=== PATIENT | male | born 1970 | race Two or more races ===

== ENCOUNTER 2016-11-26 12:09 | Inpatient (IN) | payer OTHER ==
[2016-11-26 15:50] VITALS: BMI 26.2
--- NOTE | 2016-11-26 16:56 | HP ---
CIWA Score - CIWA Score Nausea/Vomitin-Mild Nausea/No Vomiting Muscle Tremors: 3 Anxiety: 4-Mod. Anxious/Guarded Agitation: 4-Moderately Restless Paroxysmal Sweats: 1-Minimal Palms Moist Orientation: 0-Oriented Tacttile Disturbances: 0-None Auditory Disturbances: 0-None Visual Disturbances: 0-None Headache: 1-Very Mild CIWA-Ar Total Score: 14 Admission ROS BHS - HPI Chief Complaint: withdrawal sx Allergies/Adverse Reactions: Allergies Allergy/AdvReac Type Severity Reaction Status Date / Time Fish Containing Products Allergy Severe Rash Verified 11/26/16 17:00 bupropion HCl Allergy Intermediate seizures Verified 11/26/16 16:46 [From Wellbutrin] History of Present Illness: 46 years old male with long history of alcohol cocaine nicotine dependence, has diabetes ii hypertension hepatitis c and bipolar ii is admitted to detox Exam Limitations: No Limitations - Ebola screening Have you traveled outside of the country in the last 21 days: No Have you had contact with anyone from an Ebola affected area: No Have you been sick,other than usual withdrawal symptoms: No Do you have a fever: No - Review of Systems Constitutional: Loss of Appetite, Changes in sleep, Unintentional Wgt. Loss, Unexplained wgt Loss EENT: reports: No Symptoms Reported Respiratory: reports: No Symptoms reported Cardiac: reports: No Symptoms Reported GI: reports: Nausea, Poor Appetite : reports: No Symptoms Reported Musculoskeletal: reports: Back Pain, Joint Pain, Muscle Pain, Neck Pain Integumentary: reports: Rash (both feet) Neuro: reports: Seizure (8 seizure last episode 2014 alcohol related), Tremors Endocrine: reports: Increased Urine Hematology: reports: No Symptoms Reported Psychiatric: reports: Judgement Intact, Orientated x3, Depressed Other Systems: Reviewed and Negative Patient History - Patient Medical History Hx Anemia: No Hx Asthma: No Hx Chronic Obstructive Pulmonary Disease (COPD): No Hx Cancer: No Hx Cardiac Disorders: No Hx Congestive Heart Failure: No Hx Hypertension: Yes Hx Hypercholesterolemia: No Hx Pacemaker: No HX Cerebrovascular Accident: No Hx Seizures: Yes (12/2014) Hx Dementia: No Hx Diabetes: Yes Hx Gastrointestinal Disorders: No Hx Liver Disease: Yes Hx Genitourinary Disorders: No Hx Sexually Transmitted Disorders: No Hx Renal Disease (ESRD): No Hx Thyroid Disease: No Hx Human Immunodeficiency Virus (HIV): No (NEGATIVE IN 01/2012) Hx Hepatitis C: Yes (TREATED FOR 6 MONTHS, BUT DID NOT WORK) Hx Depression: No Hx Suicide Attempt: No Hx Bipolar Disorder: Yes Hx Schizophrenia: No - Patient Surgical History Past Surgical History: No Hx Neurologic Surgery: No Hx Cataract Extraction: No Hx Cardiac Surgery: No Hx Lung Surgery: No Hx Breast Surgery: No Hx Breast Biopsy: No Hx Abdominal Surgery: No Hx Appendectomy: No Hx Cholecystectomy: No Hx Genitourinary Surgery: No Hx Orthopedic Surgery: No - PPD History Previous Implant?: Yes Documented Results: Negative w/proof Implanted On Prior [facility] Admission?: Yes Date: 11/19/14 Results: 0 MM PPD to be Administered?: Yes - Smoking Cessation Smoking history: Current every day smoker Have you smoked in the past 12 months: Yes Aproximately how many cigarettes per day: 12 Cigars Per Day: 0 Hx Chewing Tobacco Use: No Initiated information on smoking cessation: Yes 'Breaking Loose' booklet given: 11/26/16 - Substance & Tx. History Hx Alcohol Use: Yes Hx Substance Use: Yes Substance Use Type: Alcohol, Cocaine, Opiates, Tranquilizers Hx Substance Use Treatment: Yes (03/24-04/19/15 [facility]) Family Disease History - Family Disease History Family Disease History: [place]: Father (), Mother (), Other: Father , Mother Admission Physical Exam S - Vital Signs Vital Signs: Vital Signs - 24 hr 11/26/16 15:36 Temperature 96.4 F L Pulse Rate 68 Respiratory 20 Rate Blood Pressure 130/76 - Physical General Appearance: Yes: Appropriately Dressed, Mild Distress, Thin, Tremorous, Irritable, Sweating, Anxious HEENTM: Yes: Hearing grossly Normal, Normal ENT Inspection, Normocephalic, Normal Voice Respiratory: Yes: Chest Non-Tender, Lungs Clear, Normal Breath Sounds, No Respiratory Distress, No Accessory Muscle Use Neck: Yes: Supple, Trachea in good position Breast: Yes: Breasts Symetrical Cardiology: Yes: Regular Rhythm, Regular Rate, S1, S2 Abdominal: Yes: Normal Bowel Sounds, Non Tender, Soft Genitourinary: Yes: Within Normal Limits Back: Yes: Normal Inspection Musculoskeletal: Yes: full range of Motion, Gait Steady, Back pain, Muscle Pain Extremities: Yes: Normal Inspection, Normal Range of Motion, Non-Tender, Tremors Neurological: Yes: Fully Oriented, Alert, Motor Strength 5/5, Normal Response, Depressed Affect Integumentary: Yes: Warm, Rash (feet) Lymphatic: Yes: Within Normal Limits - Diagnostic (1) Alcohol dependence with uncomplicated withdrawal Current Visit: Yes Status: Acute (2) Nicotine dependence Current Visit: Yes Status: Acute Qualifiers: Nicotine product type: cigarettes Substance use status: in withdrawal Qualified Code(s): F17.213 - Nicotine dependence, cigarettes, with withdrawal; F17.213 - Nicotine dependence, cigarettes, with withdrawal (3) Essential hypertension Current Visit: Yes Status: Chronic (4) Hepatitis C Current Visit: Yes Status: Chronic Qualifiers: Viral hepatitis chronicity: chronic Hepatic coma status: without hepatic coma Qualified Code(s): B18.2 - Chronic viral hepatitis C; B18.2 - Chronic viral hepatitis C; B18.2 - Chronic viral hepatitis C; B18.2 - Chronic viral hepatitis C (5) Methadone maintenance therapy patient Current Visit: Yes Status: Chronic Comment: 60 mg verification pending (6) Acneiform rash Current Visit: Yes Status: Chronic Comment: feet (7) Weight loss Current Visit: Yes Status: Acute (8) Bipolar II disorder Current Visit: Yes Status: Suspected Cleared for Admission S - Detox or Rehab [facility] Level of Care: Medically Managed Detox Regimen/Protocol: Librium BHS Breath Alcohol Content Breath Alcohol Content: 0 Vital Signs - Vital Signs Vital Signs Refused: No Temperature: 96.4 F Temperature Source: Oral Pulse Rate: 68 Respiratory Rate: 20 Blood Pressure: 130/76 BP Location: Left Arm Blood Pressure Position: Sitting - Height Height: 5 ft 9 in - Weight Weight: 178 lb Weight Measurement Method: Standing Scale Body Mass Index (BMI): 26.2 - Bowel Function Bowel Movement: Yes Urine Drug Screen - Control Is Test Valid: Yes - Results Drug Screen Negative: No Urine Drug Screen Results: ROSIO-Cocaine, OPI-Opiates, BZO-Benzodiazepines, MTD- Methadone
[2016-11-26] MEDS ORDERED: MAGNESIUM CITRATE 300 ML BOTTLE PO PRN (17:05)
[2016-11-26] MEDS ORDERED: MAG HYDROX/AL HYDROX/SIMETH 30 ML UNIT-DOSE CUP PO PRN (17:05)
[2016-11-26] MEDS ORDERED: guaiFENesin/D-METHORPHAN HB 10 ML UNIT-DOSE CUPS PO PRN (17:05)
[2016-11-26] MEDS ORDERED: MENTHOL/PHENOL 1 EACH UD MM PRN (17:05)
[2016-11-26] MEDS ORDERED: P-EPHED 60MG/TRIPROLIDI 2.5MG TABLET PO PRN (17:05)
[2016-11-26] MEDS ORDERED: IBUPROFEN 400 MG TABLET (FP) PO PRN (17:05)
[2016-11-26] MEDS ORDERED: LOPERAMIDE HCL 2 MG CAPSULE PO PRN (17:05)
[2016-11-26] MEDS ORDERED: diphenhydrAMINE HCL 50 MG CAPSULE PO PRN (17:05)
[2016-11-26] MEDS ORDERED: NICOTINE 14 MG/24 HOURS TOPICAL PATCH TD PRN (17:05)
[2016-11-26] MEDS ORDERED: MAGNESIUM HYDROX 2400MG/30ML ORAL SUSPENSION 30 ML CUP PO PRN (17:05)
[2016-11-26] MEDS ORDERED: ACETAMINOPHEN 325 MG TABLET (FP) PO PRN (17:05)
[2016-11-26] MEDS: chlordiazePOXIDE HCL 25 MG CAPSULE PO PRN (18:30)
[2016-11-26] MEDS: TOLNAFTATE 1% CREAM 15 GM TUBE TP SCH (21:52)
[2016-11-26 22:14] LABS: URINE APPEARANCE SLCLOUDY; URINE BILIRUBIN NEGATIVE (NEGATIVE); URINE BLOOD NEGATIVE (NEGATIVE); URINE COLOR YELLOW; URINE GLUCOSE (UA) 3+ (NEGATIVE); URINE KETONE NEGATIVE (NEGATIVE); URINE NITRITE NEGATIVE (NEGATIVE); URINE PROTEIN NEGATIVE (NEGATIVE); URINE UROBILINOGEN NEGATIVE mg/dL (0.2-1.0)
[2016-11-26] MEDS: chlordiazePOXIDE HCL 25 MG CAPSULE PO SCH (22:27)
[2016-11-26] MEDS: THIAMINE HCL 100 MG TABLET (FP) PO SCH (22:27)
[2016-11-26] MEDS: GABAPENTIN 300 MG CAPSULE (FP) PO SCH (22:27)
[2016-11-27] MEDS: GABAPENTIN 300 MG CAPSULE (FP) PO SCH ×3 (06:02→22:00)
[2016-11-27] MEDS: chlordiazePOXIDE HCL 25 MG CAPSULE PO SCH ×4 (06:02→22:20)
[2016-11-27] MEDS: metFORMIN HCL 500 MG TABLET (FP) PO SCH ×2 (06:07→17:23)
[2016-11-27] MEDS ORDERED: INSULIN (NOVOLOG) ASPART 100 UNITS/ML 10ML VIAL ONE ×2 (06:45→16:40)
[2016-11-27] MEDS: INSULIN SLIDING SCALE (NOVOLOG) 1 VIAL SQ SCH ×2 (08:04→17:23)
[2016-11-27] MEDS ORDERED: ONDANSETRON *ODT* 4 MG TABLET SL PRN (09:18)
[2016-11-27] MEDS ORDERED: METHADONE HCL 10 MG TABLET PO SCH (09:30)
[2016-11-27 09:38] LABS: MCH 30.4 pg (25.7-33.7); MEAN PLT VOLUME 9.2 fl (7.5-11.1); PLATELET COUNT 125 K/MM3 (134-434); RDW 13.2 % (11.9-15.9)
[2016-11-27 09:41] LABS: ALBUMIN 3.1 g/dl (3.4-5.0); ANION GAP 8 (8-16); CALCIUM 8.6 mg/dL (8.5-10.1); CO2 29 mmol/L (21-32); GLUCOSE,RANDOM 294 mg/dL (74-106); SGOT/AST 79 U/L (15-37)
[2016-11-27 09:43] LABS: ALK PHOS 217 U/L (45-117); BILIRUBIN,TOTAL 0.5 mg/dL (0.2-1.0); CREATININE 0.7 mg/dL (0.7-1.3); SGPT/ALT 90 U/L (12-78); TOT PROT 6.5 g/dl (6.4-8.2)
[2016-11-27] MEDS ORDERED: PRENATAL VITAMINS W/ FOLIC ACID TABLET (FP) PO SCH (10:00)
[2016-11-27] MEDS ORDERED: ENALAPRIL MALEATE 10 MG TABLET (FP) PO SCH (10:00)
[2016-11-27] MEDS ORDERED: METHADONE HCL 10 MG TABLET ONE (10:36)
[2016-11-27] MEDS ORDERED: METHADONE HCL 40 MG DISPERSABLE TABLET ONE (10:36)
[2016-11-27] MEDS: TOLNAFTATE 1% CREAM 15 GM TUBE TP SCH ×2 (10:37→22:20)
[2016-11-27] MEDS: METHADONE 40 MG, METHADONE 20 MG PO SCH (10:37)
[2016-11-27 11:55] LABS: URINE LEUK ESTERASE Negative (NEGATIVE)
--- NOTE | 2016-11-27 12:02 | CONSULT ---
[facility] Psychiatric Consult - Data Date of interview: 11/27/16 Admission source: [facility] Identifying data: Readmission to [facility] for this 46 y/o [place] male seeking detox treatment on for alcohol,cocaine,opioid and benzodiazepine dependence.Patient is ,the father of one independent adult ,domiciled,unemployed and supported on welfare benefits. Substance Abuse History: Confirmed by patient in this interview. Smoking Cessation. Smoking history: Current every day smoker. Have you smoked in the past 12 months: Yes. Aproximately how many cigarettes per day: 12. Cigars Per Day: 0. Hx Chewing Tobacco Use: No. Initiated information on smoking cessation : Yes. 'Breaking Loose' booklet given: 11/26/16. - Substance & Tx. History. Hx Alcohol Use: Yes. Hx Substance Use: Yes. Substance Use Type: Alcohol, Cocaine, Opiates, Tranquilizers. Hx Substance Use Treatment: Yes (03/24-04/19/15 [facility]) Medical History: Insulin-dependent diabetes mellitus,hypertension,hepatitis C. Psychiatric History: Patient is hostile,irritable and marginally cooperative.Mr Uribe denies any prior contact with mental healthcare providers.This is in contrast with a previous encounter with this promotion writer in 2016. Imported note as follows : " no reported history of psychiatric hospitalizations.Patient does, however,report that his first contact with a psychiatrist was in childhood ( exact age not recalled) because of " being slow in school ".Patient mentions that " in 2007,a doctor said that I have ADHD and depression with anxiety."He was reportedly prescribed xanax,seroquel and sertraline.For the time being,the patient reports affiliation with [facility] (methadone maintenance/ 100 mg daily).Sees a psychiatrist every 90 days for medication management.He denies history of suicide attempts." End of note. Mr Uribe is currently on methadone maintenance (60 mg/day) at [facility]. Physical/Sexual Abuse/Trauma History: Patient denies. Additional Comment: Urine Drug Screen Results: ROSIO-Cocaine, OPI-Opiates, BZO- Benzodiazepines, MTD-Methadone.Noted. Mental Status Exam - Mental Status Exam Alert and Oriented to: Time, Place, Person Cognitive Function: Good Patient Appearance: Well Groomed Mood: Angry (expected to be called first by nurses to get methadone dose ; feels self-entitled), Hostile, Irritable Affect: Normal Range Patient Behavior: Passive, Uncooperative Speech Pattern: Clear Voice Loudness: Normal Thought Process: Goal Oriented Thought Disorder: Not Present Hallucinations: Denies Suicidal Ideation: Denies Homicidal Ideation: Denies Insight/Judgement: Poor Sleep: Well Appetite: Good Muscle strength/Tone: Normal Gait/Station: Normal Psychiatric Findings - Problem List ([place] 1, 2,3) (1) Alcohol dependence with uncomplicated withdrawal Current Visit: Yes Status: Acute (2) Opioid dependence on agonist therapy Current Visit: Yes Status: Acute (3) Cocaine dependence Current Visit: Yes Status: Acute (4) Nicotine dependence Current Visit: Yes Status: Acute Qualifiers: Nicotine product type: cigarettes Substance use status: in withdrawal Qualified Code(s): F17.213 - Nicotine dependence, cigarettes, with withdrawal; F17.213 - Nicotine dependence, cigarettes, with withdrawal (5) Substance induced mood disorder Current Visit: Yes Status: Acute (6) Personality disorder, unspecified Current Visit: Yes Status: Suspected (7) Essential hypertension Current Visit: Yes Status: Chronic (8) IDDM (insulin dependent diabetes mellitus) Current Visit: No Status: Acute - Initial Treatment Plan Initial Treatment Plan: Psychoeducation.Detoxification.Observation.
--- NOTE | 2016-11-27 12:03 | EKG ---
Test Reason : Blood Pressure : / mmHG Vent. Rate : 069 BPM Atrial Rate : 069 BPM P-R Int : 184 ms QRS Dur : 082 ms QT Int : 404 ms P-R-T Axes : 054 017 018 degrees QTc Int : 432 ms NORMAL SINUS RHYTHM POSSIBLE LEFT ATRIAL ENLARGEMENT LEFT VENTRICULAR HYPERTROPHY ABNORMAL ECG NO PREVIOUS ECGS AVAILABLE Confirmed by CHELITA HALE MD ([id number]) on 11/27/2016 12:03:03 PM Referred By: Confirmed By:CHELITA HALE MD
--- NOTE | 2016-11-27 12:24 | PN ---
S CIWA - CIWA Score Nausea/Vomitin Muscle Tremors: None Anxiety: 4-Mod. Anxious/Guarded Agitation: 3 Paroxysmal Sweats: 3 Orientation: 0-Oriented Tacttile Disturbances: 3-Moderate Itch/Numb/Burn Auditory Disturbances: 0-None Visual Disturbances: 2-Mild Sensitivity Headache: 0-None Present CIWA-Ar Total Score: 20 S Progress Note (SOAP) Subjective: Sweating, Vomiting, Interrupted sleep, Stomach Cramping, Body Aches. Objective: PT. A & O X 3, OBSERVED AMBULATING ON UNIT. NO ACUTE DISTRESS. PT. DENIES CHEST PAIN. 11/27/16 12:20 Vital Signs Temperature 97.9 F 11/27/16 09:48 Pulse Rate 68 11/27/16 09:48 Respiratory Rate 20 11/27/16 09:48 Blood Pressure 147/98 11/27/16 09:48 O2 Sat by Pulse Oximetry (%) Laboratory Tests 11/26/16 11/26/16 11/26/16 12:23 17:13 21:30 WBC RBC Hgb Hct MCV MCH MCHC RDW Plt Count MPV Sodium Potassium Chloride Carbon Dioxide Anion Gap BUN Creatinine Creat Clearance w eGFR POC Glucometer 210 179 Random Glucose Calcium Total Bilirubin AST ALT Alkaline Phosphatase Total Protein Albumin Urine Color Yellow Urine Appearance Slcloudy Urine pH 5.0 Ur Specific [place] 1.025 Urine Protein Negative Urine Glucose (UA) 3+ H Urine Ketones Negative Urine Blood Negative Urine Nitrite Negative Urine Bilirubin Negative Urine Urobilinogen Negative Ur Leukocyte Esterase Negative RPR Titer 11/27/16 11/27/16 11/27/16 06:05 07:00 07:00 WBC 5.0 RBC 4.39 Hgb 13.3 Hct 40.4 MCV 92.0 MCH 30.4 MCHC 33.0 RDW 13.2 Plt Count 125 L MPV 9.2 Sodium 138 Potassium 4.1 Chloride 101 Carbon Dioxide 29 Anion Gap 8 BUN 15 D Creatinine 0.7 Creat Clearance w eGFR > 60 POC Glucometer 187 Random Glucose 294 H D Calcium 8.6 Total Bilirubin 0.5 D AST 79 H D ALT 90 H D Alkaline Phosphatase 217 H D Total Protein 6.5 Albumin 3.1 L Urine Color Urine Appearance Urine pH Ur Specific [place] Urine Protein Urine Glucose (UA) Urine Ketones Urine Blood Urine Nitrite Urine Bilirubin Urine Urobilinogen Ur Leukocyte Esterase RPR Titer 11/27/16 07:00 WBC RBC Hgb Hct MCV MCH MCHC RDW Plt Count MPV Sodium Potassium Chloride Carbon Dioxide Anion Gap BUN Creatinine Creat Clearance w eGFR POC Glucometer Random Glucose Calcium Total Bilirubin AST ALT Alkaline Phosphatase Total Protein Albumin Urine Color Urine Appearance Urine pH Ur Specific [place] Urine Protein Urine Glucose (UA) Urine Ketones Urine Blood Urine Nitrite Urine Bilirubin Urine Urobilinogen Ur Leukocyte Esterase RPR Titer Nonreactive LABS NOTED. Assessment: 11/27/16 12:21 WITHDRAWAL SYMPTOMS. HTN. Plan: CONTINUE DETOX. HEPATIC FUNCTION PANEL ON 11/29/2016 FOR ELEVATED ADMISSION LIVER ENZYMES. CONTINUE TO MONITOR BP.
[2016-11-27] MEDS: chlordiazePOXIDE HCL 25 MG CAPSULE PO PRN ×2 (14:17→20:47)
[2016-11-27] MEDS: NICOTINE POLACRILEX 2 MG GUM BC PRN ×2 (17:37→19:51)
[2016-11-27] MEDS: THIAMINE HCL 100 MG TABLET (FP) PO SCH (22:20)
[2016-11-28] MEDS ORDERED: METHADONE HCL 40 MG DISPERSABLE TABLET ONE (03:10)
[2016-11-28] MEDS ORDERED: METHADONE HCL 10 MG TABLET ONE (03:10)
[2016-11-28] MEDS: chlordiazePOXIDE HCL 25 MG CAPSULE PO SCH (05:17)
[2016-11-28] MEDS: GABAPENTIN 300 MG CAPSULE (FP) PO SCH (05:17)
[2016-11-28] MEDS: METHADONE 40 MG, METHADONE 20 MG PO SCH (05:17)
[2016-11-28] MEDS: metFORMIN HCL 500 MG TABLET (FP) PO SCH (06:38)
[2016-11-28] MEDS: INSULIN SLIDING SCALE (NOVOLOG) 1 VIAL SQ SCH (06:39)
[2016-11-28] MEDS ORDERED: INSULIN (NOVOLOG) ASPART 100 UNITS/ML 10ML VIAL ONE (06:41)
[2016-11-28 10:15] VITALS: BP 133/89; PULSE 67; TEMP 98
--- NOTE | 2016-11-28 11:50 | DS ---
[facility] Detox Discharge Summary Admission Date: 11/26/16 Discharge Date: 11/28/16 - History Present History: Alcohol Dependence, Cocaine Dependence, MMTP Additional Comments: PT DECLINED TO COMPLETE DETOX. SIGNED OUT AMA. PT ENCOURAGED TO FOLLOW UP WITH PCP AT [facility] NEEDED. Pertinent Past History: HTN DM HEP C RASH DEPRESSION - Physical Exam Results Vital Signs: Vital Signs Temperature 98.0 F 11/28/16 10:14 Pulse Rate 67 11/28/16 10:14 Respiratory Rate 18 11/28/16 10:14 Blood Pressure 133/89 11/28/16 10:14 O2 Sat by Pulse Oximetry (%) Pertinent Admission Physical Exam Findings: WITHDRAWAL SX Laboratory Last Values WBC 5.0 K/mm3 (4.0-10.0) 11/27/16 07:00 RBC 4.39 M/mm3 (4.00-5.60) 11/27/16 07:00 Hgb 13.3 GM/dL (11.7-16.9) 11/27/16 07:00 Hct 40.4 % (35.4-49) 11/27/16 07:00 MCV 92.0 fl (80-96) 11/27/16 07:00 MCH 30.4 pg (25.7-33.7) 11/27/16 07:00 MCHC 33.0 g/dl (32.0-35.9) 11/27/16 07:00 RDW 13.2 % (11.9-15.9) 11/27/16 07:00 Plt Count 125 K/MM3 (134-434) L 11/27/16 07:00 MPV 9.2 fl (7.5-11.1) 11/27/16 07:00 Sodium 138 mmol/L (136-145) 11/27/16 07:00 Potassium 4.1 mmol/L (3.5-5.1) 11/27/16 07:00 Chloride 101 mmol/L (98-107) 11/27/16 07:00 Carbon Dioxide 29 mmol/L (21-32) 11/27/16 07:00 Anion Gap 8 (8-16) 11/27/16 07:00 BUN 15 mg/dL (7-18) D 11/27/16 07:00 Creatinine 0.7 mg/dL (0.7-1.3) 11/27/16 07:00 Creat Clearance w eGFR > 60 (>60) 11/27/16 07:00 POC Glucometer 203 UNITS (()) 11/28/16 05:15 Random Glucose 294 mg/dL (74-106) H D 11/27/16 07:00 Calcium 8.6 mg/dL (8.5-10.1) 11/27/16 07:00 Total Bilirubin 0.5 mg/dL (0.2-1.0) D 11/27/16 07:00 AST 79 U/L (15-37) H D 11/27/16 07:00 ALT 90 U/L (12-78) H D 11/27/16 07:00 Alkaline Phosphatase 217 U/L (45-117) H D 11/27/16 07:00 Total Protein 6.5 g/dl (6.4-8.2) 11/27/16 07:00 Albumin 3.1 g/dl (3.4-5.0) L 11/27/16 07:00 Urine Color Yellow 11/26/16 21:30 Urine Appearance Slcloudy 11/26/16 21:30 Urine pH 5.0 (5.0-8.0) 11/26/16 21:30 Ur Specific [place] 1.025 (1.005-1.025) 11/26/16 21:30 Urine Protein Negative (NEGATIVE) 11/26/16 21:30 Urine Glucose (UA) 3+ (NEGATIVE) H 11/26/16 21:30 Urine Ketones Negative (NEGATIVE) 11/26/16 21:30 Urine Blood Negative (NEGATIVE) 11/26/16 21:30 Urine Nitrite Negative (NEGATIVE) 11/26/16 21:30 Urine Bilirubin Negative (NEGATIVE) 11/26/16 21:30 Urine Urobilinogen Negative mg/dL (0.2-1.0) 11/26/16 21:30 Ur Leukocyte Esterase Negative (NEGATIVE) 11/26/16 21:30 RPR Titer Nonreactive (NONREACTIVE) 11/27/16 07:00 - Treatment Hospital Course: Discharged Condition Good - Medication Discharge Medications: Ambulatory Orders Metformin HCl [Glucophage] 1,000 mg PO BID 04/23/12 Enalapril Maleate [Vasotec -] 10 mg PO DAILY 11/17/14 Zolpidem Tartrate [Ambien] 10 mg PO HS #30 tablet 11/20/14 Quetiapine Fumarate [Seroquel] 50 mg PO HS #30 tablet 03/22/15 Sertraline HCl [Zoloft -] 100 mg PO DAILY #30 tablet 03/22/15 Gabapentin [Neurontin -] 300 mg PO TID #90 capsule 04/18/15 - Diagnosis (1) Alcohol dependence with uncomplicated withdrawal Status: Acute (2) Nicotine dependence Status: Acute Qualifiers: Nicotine product type: cigarettes Substance use status: in withdrawal Qualified Code(s): F17.213 - Nicotine dependence, cigarettes, with withdrawal; F17.213 - Nicotine dependence, cigarettes, with withdrawal (3) Weight loss Status: Acute (4) Essential hypertension Status: Chronic (5) Methadone maintenance therapy patient Status: Chronic (6) DM Diabetes mellitus type 2 Status: Chronic (7) Seizure disorder Status: Chronic (8) Cocaine dependence Status: Acute (9) Acneiform rash Status: Chronic (10) Hepatitis C Status: Chronic Qualifiers: Viral hepatitis chronicity: chronic Hepatic coma status: without hepatic coma Qualified Code(s): B18.2 - Chronic viral hepatitis C; B18.2 - Chronic viral hepatitis C; B18.2 - Chronic viral hepatitis C; B18.2 - Chronic viral hepatitis C - AMA Did Patient Leave Against Medical Advice: Yes (AMA)
[2016-11-28] MEDS ORDERED: chlordiazePOXIDE 5 MG CAPSULE PO SCH (23:00)
[2016-11-29] MEDS ORDERED: chlordiazePOXIDE HCL 10 MG CAPSULE PO SCH (23:00)
== END 2016-11-28 09:53 | disposition left against medical advice (07) | DRG 770 ==
LOC: YASAS 12:09 → Y3N 17:48
PROVIDERS: ADMIT Internal Medicine; ATTEND Internal Medicine
PROC: HZ2ZZZZ Detoxification Services for Substance Abuse Treatment (ICD-10-PCS; principal; 2016-11-26)
DX: F10.230 Alcohol dependence with withdrawal, uncomplicated (principal); F11.20 Opioid dependence, uncomplicated; F14.20 Cocaine dependence, uncomplicated; F17.213 Nicotine dependence, cigarettes, with withdrawal; F19.24 Other psychoactive substance dependence with psychoactive substance-induced mood disorder; F60.9 Personality disorder, unspecified; F31.81 Bipolar II disorder; I10 Essential (primary) hypertension; E11.9 Type 2 diabetes mellitus without complications; B18.2 Chronic viral hepatitis C; L27.0 Generalized skin eruption due to drugs and medicaments taken internally; Z91.013 Allergy to seafood; Z88.8 Allergy status to other drugs, medicaments and biological substances; Z86.69 Personal history of other diseases of the nervous system and sense organs; Z79.4 Long term (current) use of insulin; Z87.898 Personal history of other specified conditions
CPT/HCPCS: 36415; 80053; 81003; 85027; 86593; 93005; 93010

== ENCOUNTER 2017-03-09 10:19 | Inpatient (IN) | payer OTHER ==
[2017-03-09 12:43] VITALS: BMI 26.6
--- NOTE | 2017-03-09 16:53 | HP ---
CIWA Score - CIWA Score Nausea/Vomitin-No Nausea/No Vomiting Muscle Tremors: 4-Moderate,w/Arms Extend Anxiety: 4-Mod. Anxious/Guarded Agitation: 4-Moderately Restless Paroxysmal Sweats: 1-Minimal Palms Moist Orientation: 0-Oriented Tacttile Disturbances: 3-Moderate Itch/Numb/Burn Auditory Disturbances: 0-None Visual Disturbances: 0-None Headache: 0-None Present CIWA-Ar Total Score: 16 Admission ROS S - HPI Chief Complaint: WITHDRAWAL SX FROM ALCOHOL Allergies/Adverse Reactions: Allergies Allergy/AdvReac Type Severity Reaction Status Date / Time Fish Containing Products Allergy Severe Rash Verified 03/09/17 14:16 No Known Drug Allergies Allergy Verified 03/09/17 16:04 bupropion HCl AdvReac Intermediate seizures Verified 03/09/17 16:04 [From Wellbutrin] History of Present Illness: 47 Y/O H/MALE WITH A HX OF ALCOHOL,HEROIN AND COCAINE DEPENDENCE SEEKING DETOX TX. PT IS ON PROMESA-MMPT WITH METHADONE 7O MG PO DAILY. LAST DOSE ON 03/09/17. Exam Limitations: No Limitations - Ebola screening Have you traveled outside of the country in the last 21 days: No Have you had contact with anyone from an Ebola affected area: No Have you been sick,other than usual withdrawal symptoms: No - Review of Systems Constitutional: Chills, Loss of Appetite, Night Sweats, Changes in sleep, Unintentional Wgt. Loss EENT: reports: Blurred Vision (ESPECIALLY THE LEFT EYE), Tearing, Nose Congestion (SNEEZING) Respiratory: reports: SOB with Exertion (DENIES ASTHMA) Cardiac: reports: Lightheadedness GI: reports: Constipated (OIC), Diarrhea, Nausea, Poor Appetite, Vomiting : reports: Dysuria (SLOW COMING OUT SOMETIMES), Frequency Musculoskeletal: reports: Back Pain (HX LBP), Joint Pain (KNEES), Muscle Pain Integumentary: reports: Dryness, Rash (ITCHY AND DRY FEET) Neuro: reports: Headache (TAKES ASPIRIN), Seizure, Tremors, Unsteady Gait, Dizziness Endocrine: reports: Increased Hunger, Increased Thirst, Increased Urine, Change in Weight Hematology: reports: No Symptoms Reported Psychiatric: reports: Orientated x3, Anxious, Depressed Other Systems: Reviewed and Negative Patient History - Patient Medical History Hx Anemia: No Hx Asthma: No Hx Chronic Obstructive Pulmonary Disease (COPD): No Hx Cancer: No Hx Cardiac Disorders: No Hx Congestive Heart Failure: No Hx Hypertension: Yes (ON ENALAPRIL) Hx Hypercholesterolemia: No Hx Pacemaker: No HX Cerebrovascular Accident: No Hx Seizures: Yes (LAST IN 08/2016) Hx Dementia: No Hx Diabetes: Yes (BGM-147) Hx Gastrointestinal Disorders: No Hx Liver Disease: Yes Hx Genitourinary Disorders: No Hx Sexually Transmitted Disorders: No Hx Renal Disease (ESRD): No Hx Thyroid Disease: No Hx Human Immunodeficiency Virus (HIV): No (NEGATIVE IN 01/2012) Hx Hepatitis C: Yes (TREATED FOR 6 MONTHS, BUT DID NOT WORK) Hx Depression: Yes (ON MEDS) Hx Suicide Attempt: No Hx Bipolar Disorder: Yes Hx Schizophrenia: No - Patient Surgical History Past Surgical History: No Hx Neurologic Surgery: No Hx Cataract Extraction: No Hx Cardiac Surgery: No Hx Lung Surgery: No Hx Breast Surgery: No Hx Breast Biopsy: No Hx Abdominal Surgery: No Hx Appendectomy: No Hx Cholecystectomy: No Hx Genitourinary Surgery: No Hx Orthopedic Surgery: No Anesthesia Reaction: No - PPD History Previous Implant?: Yes Documented Results: Negative w/proof Implanted On Prior R Admission?: Yes Date: 11/28/16 Results: 0 MM PPD to be Administered?: No - Reproductive History Patient is a Female of Child Bearing Age (11 -55 yrs old): No (MALE) - Smoking Cessation Smoking history: Current every day smoker Have you smoked in the past 12 months: Yes Aproximately how many cigarettes per day: 10 Cigars Per Day: 0 Hx Chewing Tobacco Use: No Initiated information on smoking cessation: Yes 'Breaking Loose' booklet given: 03/09/17 - Substance & Tx. History Hx Alcohol Use: Yes (BEER/BARCADI/JORGE) Hx Substance Use: Yes (HEROIN) Substance Use Type: Alcohol, Cocaine, Heroin Hx Substance Use Treatment: Yes (CURRENTLY ON PROMESA-MMTP) - Substances Abused Alcohol Route: Oral Frequency: Daily Amount used: BEER(2- 6PKS-12 OZ BOTTLES)/RUM(1 PINT) Age of first use: 18 Date of Last Use: 03/09/17 Heroin Route: Inhalation Frequency: Daily Amount used: 5 bags Age of first use: 18 Date of Last Use: 03/09/17 Cocaine Route: Inhalation Frequency: Daily Amount used: 5 bags Age of first use: 18 Date of Last Use: 03/08/17 Family Disease History - Family Disease History Family Disease History: [place]: Father (), Mother (), Other: Father , Mother Admission Physical Exam [facility] - Vital Signs Vital Signs: Vital Signs - 24 hr 03/09/17 12:39 Temperature 96 F L Pulse Rate 74 Respiratory 20 Rate Blood Pressure 160/100 - Physical General Appearance: Yes: Appropriately Dressed, Moderate Distress, Irritable, Anxious HEENTM: Yes: EOMI, Normal ENT Inspection, Normocephalic, LISSETT, Pharynx Normal Respiratory: Yes: Chest Non-Tender, Lungs Clear, Normal Breath Sounds, No Respiratory Distress Neck: Yes: No masses,lesions,Nodules, Supple, Trachea in good position Breast: Yes: Breast Exam Deferred Cardiology: Yes: Regular Rhythm, Regular Rate, S1, S2 Abdominal: Yes: Normal Bowel Sounds, Non Tender, Flat, Soft Genitourinary: Yes: Other (N/C) Back: Yes: Within Normal Limits Musculoskeletal: Yes: full range of Motion, Gait Steady Extremities: Yes: Normal Range of Motion, Non-Tender Neurological: Yes: 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 NML intact, Fully Oriented, Alert, Motor Strength 5/5 Integumentary: Yes: Dry, Warm Lymphatic: Yes: Within Normal Limits - Diagnostic (1) Alcohol dependence with uncomplicated withdrawal Current Visit: Yes Status: Chronic (2) Nicotine dependence Current Visit: Yes Status: Chronic Qualifiers: Nicotine product type: cigarettes Substance use status: in withdrawal Qualified Code(s): F17.213 - Nicotine dependence, cigarettes, with withdrawal (3) Weight loss Current Visit: No Status: Acute (4) DM Diabetes mellitus type 2 Current Visit: Yes Status: Chronic (5) Essential hypertension Current Visit: Yes Status: Chronic (6) Hepatitis C Current Visit: Yes Status: Chronic Qualifiers: Viral hepatitis chronicity: chronic Hepatic coma status: without hepatic coma Qualified Code(s): B18.2 - Chronic viral hepatitis C (7) Methadone maintenance therapy patient Current Visit: Yes Status: Chronic Comment: 60 mg verification pending (8) Seizure disorder Current Visit: Yes Status: Chronic (9) Cocaine dependence, uncomplicated Current Visit: Yes Status: Acute Cleared for Admission [facility] - Detox or Rehab [facility] Level of Care: Medically Managed [facility]ox [facility] Breath Alcohol Content Breath Alcohol Content: 0 Urine Drug Screen - Results Drug Screen Negative: No Urine Drug Screen Results: ROSIO-Cocaine, OPI-Opiates, BZO-Benzodiazepines, MTD- Methadone
[2017-03-09] MEDS ORDERED: MAGNESIUM HYDROX 2400MG/30ML ORAL SUSPENSION 30 ML CUP PO PRN (17:12)
[2017-03-09] MEDS ORDERED: LOPERAMIDE HCL 2 MG CAPSULE PO PRN (17:12)
[2017-03-09] MEDS ORDERED: MAG HYDROX/AL HYDROX/SIMETH 30 ML UNIT-DOSE CUP PO PRN (17:12)
[2017-03-09] MEDS ORDERED: MAGNESIUM CITRATE 300 ML BOTTLE PO PRN (17:12)
[2017-03-09] MEDS ORDERED: P-EPHED 60MG/TRIPROLIDI 2.5MG TABLET PO PRN (17:12)
[2017-03-09] MEDS ORDERED: hydrOXYzine PAMOATE 50 MG CAPSULE (FP) PO PRN (17:12)
[2017-03-09] MEDS ORDERED: MENTHOL/PHENOL 1 EACH UD MM PRN (17:12)
[2017-03-09] MEDS ORDERED: guaiFENesin/D-METHORPHAN HB 10 ML UNIT-DOSE CUPS PO PRN (17:12)
[2017-03-09] MEDS ORDERED: NICOTINE POLACRILEX 2 MG GUM BC PRN (17:12)
[2017-03-09] MEDS ORDERED: chlordiazePOXIDE HCL 25 MG CAPSULE PO ONE (18:30)
[2017-03-09] MEDS: ENALAPRIL MALEATE 10 MG TABLET (FP) PO SCH (18:35)
[2017-03-09] MEDS: ASPIRIN 81 MG CHEWABLE TABLETS PO SCH (18:35)
[2017-03-09] MEDS: chlordiazePOXIDE HCL 25 MG CAPSULE PO SCH (22:12)
[2017-03-09] MEDS: THIAMINE HCL 100 MG TABLET (FP) PO SCH (22:12)
[2017-03-09] MEDS: GABAPENTIN 300 MG CAPSULE (FP) PO SCH (22:12)
[2017-03-09] MEDS: NICOTINE 14 MG/24 HOURS TOPICAL PATCH TD SCH (22:14)
[2017-03-09 23:06] LABS: URINE APPEARANCE CLEAR; URINE BILIRUBIN NEGATIVE (NEGATIVE); URINE BLOOD NEGATIVE (NEGATIVE); URINE COLOR YELLOW; URINE GLUCOSE (UA) 1+ (NEGATIVE); URINE KETONE NEGATIVE (NEGATIVE); URINE LEUK ESTERASE NEGATIVE (NEGATIVE); URINE NITRITE NEGATIVE (NEGATIVE); URINE PROTEIN NEGATIVE (NEGATIVE); URINE UROBILINOGEN NEGATIVE mg/dL (0.2-1.0)
[2017-03-10] MEDS ORDERED: METHADONE HCL 10 MG TABLET ONE (04:52)
[2017-03-10] MEDS ORDERED: METHADONE HCL 40 MG DISPERSABLE TABLET ONE (04:52)
[2017-03-10] MEDS: chlordiazePOXIDE HCL 25 MG CAPSULE PO SCH ×4 (05:16→22:01)
[2017-03-10] MEDS: METHADONE 40 MG, METHADONE 30 MG PO SCH (05:17)
[2017-03-10] MEDS ORDERED: METHADONE HCL 40 MG DISPERSABLE TABLET PO SCH (06:00)
[2017-03-10] MEDS: INSULIN SLIDING SCALE (NOVOLOG) 1 VIAL SQ SCH ×2 (07:27→17:16)
[2017-03-10] MEDS: metFORMIN HCL 500 MG TABLET (FP) PO SCH ×2 (07:28→17:17)
[2017-03-10] MEDS: chlordiazePOXIDE HCL 25 MG CAPSULE PO PRN ×2 (09:27→13:36)
[2017-03-10 10:05] LABS: HEMATOCRIT 43.9 % (35.4-49); HEMOGLOBIN 14.4 GM/dL (11.7-16.9); MCH 29.6 pg (25.7-33.7); MCHC 32.7 g/dl (32.0-35.9); MEAN CELL VOLUME 90.5 fl (80-96); MEAN PLT VOLUME 9.1 fl (7.5-11.1); PLATELET COUNT 174 K/MM3 (134-434); RBC 4.85 M/mm3 (4.00-5.60)
[2017-03-10] MEDS: GABAPENTIN 300 MG CAPSULE (FP) PO SCH ×2 (10:14→22:01)
[2017-03-10] MEDS: TOLNAFTATE 1% POWDER 45 GM POW TP SCH ×2 (10:14→22:03)
[2017-03-10] MEDS: PRENATAL VITAMINS W/ FOLIC ACID TABLET (FP) PO SCH (10:14)
[2017-03-10] MEDS: SERTRALINE HCL 50 MG TABLET (FP) PO SCH (10:14)
[2017-03-10] MEDS: ENALAPRIL MALEATE 10 MG TABLET (FP) PO SCH (10:14)
[2017-03-10] MEDS: ASPIRIN 81 MG CHEWABLE TABLETS PO SCH (10:14)
[2017-03-10] MEDS: NICOTINE 14 MG/24 HOURS TOPICAL PATCH TD SCH (10:15)
--- NOTE | 2017-03-10 11:02 | CONSULT ---
[facility] Psychiatric Consult - Data Date of interview: 03/10/17 Admission source: [facility] Identifying data: Pt. is a 47 year old male, father of one, and currently unemployed. This is one of multiple admissions for patient. Pt. admitted to for alcohol, cocaine, and opiate dependence. Substance Abuse History: Following information confirmed with Mr. Uribe: Smoking Cessation. Smoking history: Current every day smoker. Have you smoked in the past 12 months: Yes. Aproximately how many cigarettes per day: 10. Cigars Per Day: 0. Hx Chewing Tobacco Use: No. Initiated information on smoking cessation: Yes. 'Breaking Loose' booklet given: 03/09/17. - Substance & Tx. History. Hx Alcohol Use: Yes (BEER/BARCADI/JORGE). Hx Substance Use : Yes (HEROIN). Substance Use Type: Alcohol, Cocaine, Heroin. Hx Substance Use Treatment: Yes (CURRENTLY ON PROMESA-MMTP). - Substances Abused. Alcohol. Route: Oral. Frequency: Daily. Amount used: BEER(2- 6PKS-12 OZ BOTTLES)/RUM(1 PINT). Age of first use: 18. Date of Last Use: 03/09/17. Heroin. Route: Inhalation. Frequency: Daily. Amount used: 5 bags. Age of first use: 18. Date of Last Use: 03/09/17. Cocaine. Route: Inhalation. Frequency: Daily. Amount used: 5 bags. Age of first use: 18 Medical History: Hypertension, Seizures (last seizure on 08/2016), Diabetes, Liver disease, and Hep C Psychiatric History: Pt. denies h/o psychiatric hospitalizations. Reports OPC in 2006 and was diagnosed with Bipolar disorder, anxiety, and MDD. Reports currently seeing a psychiarist at [facility] in the [place] and reports being prescribed zoloft 100mg and seroquel 50mg qhs. Reports last dose taken 7 days ago. Pt. denies h/o suicide attempt. Physical/Sexual Abuse/Trauma History: Denies. Mental Status Exam - Mental Status Exam Alert and Oriented to: Time, Place, Person Cognitive Function: Good Patient Appearance: Well Groomed Mood: Euthymic Affect: Mood Congruent Patient Behavior: Guarded, Appropriate Speech Pattern: Appropriate Voice Loudness: Normal Thought Process: Goal Oriented Thought Disorder: Not Present Hallucinations: Denies Suicidal Ideation: Denies Homicidal Ideation: Denies Insight/Judgement: Poor Sleep: Poorly Appetite: Fair Muscle strength/Tone: Normal Gait/Station: Normal Psychiatric Findings - Problem List ([place] 1, 2,3) (1) Bipolar disorder Current Visit: Yes Status: Chronic Comment: Self reports. (2) Alcohol dependence with uncomplicated withdrawal Current Visit: Yes Status: Acute (3) Nicotine dependence Current Visit: Yes Status: Chronic Qualifiers: Nicotine product type: cigarettes Substance use status: in withdrawal Qualified Code(s): F17.213 - Nicotine dependence, cigarettes, with withdrawal (4) Alcohol dependence Current Visit: No Status: Acute (5) Cocaine dependence Current Visit: No Status: Acute (6) Major depression Current Visit: Yes Status: Chronic Comment: Self reports. (7) Opiate dependence Current Visit: Yes Status: Acute - Initial Treatment Plan Initial Treatment Plan: Psychoeducation provided. Detoxification in progress. Zoloft 50mg po daily (pt. requesting a reduce dosage) + seroquel 50mg qhs. Benefits and side effects discussed. Verbal consent given. Will continue to monitor patient.
[2017-03-10 11:30] LABS: CHLORIDE 99 mmol/L (98-107); POTASSIUM 4.1 mmol/L (3.5-5.1); SODIUM 139 mmol/L (136-145)
[2017-03-10 11:38] LABS: ALBUMIN 3.8 g/dl (3.4-5.0); ALK PHOS 158 U/L (45-117); ANION GAP 9 (8-16); BILIRUBIN,TOTAL 0.4 mg/dL (0.2-1.0); BLOOD UREA NITROGEN 20 mg/dL (7-18); CALCIUM 9.2 mg/dL (8.5-10.1); CO2 31 mmol/L (21-32); CREATININE 0.8 mg/dL (0.7-1.3); GLUCOSE,RANDOM 142 mg/dL (74-106); SGOT/AST 78 U/L (15-37); SGPT/ALT 100 U/L (12-78); TOT PROT 7.6 g/dl (6.4-8.2)
[2017-03-10] MEDS ORDERED: FLU VACCINE QUAD 60 MCG/0.5 ML (MDV 17-18) IM ONE (12:00)
[2017-03-10] MEDS: TOLNAFTATE 1% CREAM 15 GM TUBE TP SCH ×2 (12:28→22:02)
--- NOTE | 2017-03-10 13:41 | PN ---
S CIWA - CIWA Score Nausea/Vomitin-Mild Nausea/No Vomiting Muscle Tremors: 3 Anxiety: 3 Agitation: 2 Paroxysmal Sweats: 1-Minimal Palms Moist Orientation: 0-Oriented Tacttile Disturbances: 1-Very Mild Itch/Numbness Auditory Disturbances: 1-Very Mild Visual Disturbances: 2-Mild Sensitivity Headache: 1-Very Mild CIWA-Ar Total Score: 15 BHS Progress Note (SOAP) Objective: 03/10/17 13:41 Laboratory Tests 03/09/17 03/09/17 03/09/17 14:41 15:00 22:40 WBC RBC Hgb Hct MCV MCH MCHC RDW Plt Count MPV Sodium Potassium Chloride Carbon Dioxide Anion Gap BUN Creatinine Creat Clearance w eGFR POC Glucometer 147 Random Glucose Calcium Total Bilirubin AST ALT Alkaline Phosphatase Total Protein Albumin Urine Color Yellow Urine Appearance Clear Urine pH 5.0 Ur Specific [place] 1.018 Urine Protein Negative Urine Glucose (UA) 1+ H Urine Ketones Negative Urine Blood Negative Urine Nitrite Negative Urine Bilirubin Negative Urine Urobilinogen Negative Ur Leukocyte Esterase Negative RPR Titer HIV 1&2 Antibody Screen Negative HIV P24 Antigen Negative 03/10/17 03/10/17 03/10/17 05:15 06:00 06:00 WBC 8.0 D RBC 4.85 Hgb 14.4 Hct 43.9 MCV 90.5 MCH 29.6 MCHC 32.7 RDW 13.0 Plt Count 174 D MPV 9.1 Sodium 139 Potassium 4.1 Chloride 99 Carbon Dioxide 31 Anion Gap 9 BUN 20 H D Creatinine 0.8 Creat Clearance w eGFR > 60 POC Glucometer 179 Random Glucose 142 H D Calcium 9.2 Total Bilirubin 0.4 AST 78 H ALT 100 H Alkaline Phosphatase 158 H D Total Protein 7.6 Albumin 3.8 D Urine Color Urine Appearance Urine pH Ur Specific [place] Urine Protein Urine Glucose (UA) Urine Ketones Urine Blood Urine Nitrite Urine Bilirubin Urine Urobilinogen Ur Leukocyte Esterase RPR Titer HIV 1&2 Antibody Screen HIV P24 Antigen 03/10/17 06:00 WBC RBC Hgb Hct MCV MCH MCHC RDW Plt Count MPV Sodium Potassium Chloride Carbon Dioxide Anion Gap BUN Creatinine Creat Clearance w eGFR POC Glucometer Random Glucose Calcium Total Bilirubin AST ALT Alkaline Phosphatase Total Protein Albumin Urine Color Urine Appearance Urine pH Ur Specific [place] Urine Protein Urine Glucose (UA) Urine Ketones Urine Blood Urine Nitrite Urine Bilirubin Urine Urobilinogen Ur Leukocyte Esterase RPR Titer Nonreactive HIV 1&2 Antibody Screen HIV P24 Antigen REMAINDER PENDING Vital Signs - 24 hr 03/09/17 03/09/17 03/10/17 18:34 23:07 00:56 Temperature 98.1 F 98.2 F Pulse Rate 68 70 Respiratory 18 18 16 Rate Blood Pressure 160/100 138/89 03/10/17 03/10/17 03/10/17 03:30 06:00 09:35 Temperature 97.5 F L 97.5 F L Pulse Rate 66 60 Respiratory 18 18 18 Rate Blood Pressure 142/87 150/90 Assessment: 03/10/17 13:41 ONGOING WITHDRAWAL Plan: CONT DETOX PROTOCOL
[2017-03-10] MEDS: QUEtiapine FUMARATE 50 MG TABLET PO SCH (22:01)
[2017-03-10] MEDS: THIAMINE HCL 100 MG TABLET (FP) PO SCH (22:01)
[2017-03-11] MEDS ORDERED: METHADONE HCL 10 MG TABLET ONE (04:12)
[2017-03-11] MEDS ORDERED: METHADONE HCL 40 MG DISPERSABLE TABLET ONE (04:12)
[2017-03-11] MEDS: chlordiazePOXIDE HCL 25 MG CAPSULE PO SCH ×3 (05:59→18:01)
[2017-03-11] MEDS: METHADONE 40 MG, METHADONE 30 MG PO SCH (05:59)
[2017-03-11] MEDS: metFORMIN HCL 500 MG TABLET (FP) PO SCH ×2 (06:04→18:00)
[2017-03-11] MEDS: INSULIN SLIDING SCALE (NOVOLOG) 1 VIAL SQ SCH ×2 (07:32→18:03)
--- NOTE | 2017-03-11 07:54 | EKG ---
Test Reason : Blood Pressure : / mmHG Vent. Rate : 063 BPM Atrial Rate : 063 BPM P-R Int : 190 ms QRS Dur : 082 ms QT Int : 412 ms P-R-T Axes : 062 020 034 degrees QTc Int : 421 ms NORMAL SINUS RHYTHM VOLTAGE CRITERIA FOR LEFT VENTRICULAR HYPERTROPHY ABNORMAL ECG WHEN COMPARED WITH ECG OF 26-NOV-2016 18:37, NO SIGNIFICANT CHANGE WAS FOUND Confirmed by AALIYAH FLYNN, GI ([id number]) on 03/11/2017 7:53:57 AM Referred By: Confirmed By:GI FISCHER MD
[2017-03-11] MEDS: ASPIRIN 81 MG CHEWABLE TABLETS PO SCH (10:21)
[2017-03-11] MEDS: TOLNAFTATE 1% POWDER 45 GM POW TP SCH ×2 (10:21→23:17)
[2017-03-11] MEDS: ENALAPRIL MALEATE 10 MG TABLET (FP) PO SCH (10:21)
[2017-03-11] MEDS: TOLNAFTATE 1% CREAM 15 GM TUBE TP SCH ×2 (10:21→23:17)
[2017-03-11] MEDS: SERTRALINE HCL 50 MG TABLET (FP) PO SCH (10:21)
[2017-03-11] MEDS: NICOTINE 14 MG/24 HOURS TOPICAL PATCH TD SCH (10:21)
[2017-03-11] MEDS: PRENATAL VITAMINS W/ FOLIC ACID TABLET (FP) PO SCH (10:21)
[2017-03-11] MEDS: GABAPENTIN 300 MG CAPSULE (FP) PO SCH ×2 (10:21→22:42)
--- NOTE | 2017-03-11 12:29 | PN ---
S CIWA - CIWA Score Nausea/Vomitin Muscle Tremors: 2 Anxiety: 3 Agitation: 2 Paroxysmal Sweats: 3 Orientation: 0-Oriented Tacttile Disturbances: 1-Very Mild Itch/Numbness Auditory Disturbances: 0-None Visual Disturbances: 0-None Headache: 0-None Present CIWA-Ar Total Score: 13 BHS Progress Note (SOAP) Subjective: IS, sweats, shakes rash on feet Objective: 03/11/17 12:26 Vital Signs Temperature 98.5 F 03/11/17 10:33 Pulse Rate 65 03/11/17 10:33 Respiratory Rate 16 03/11/17 10:33 Blood Pressure 114/72 03/11/17 10:33 O2 Sat by Pulse Oximetry (%) Laboratory Tests 03/09/17 03/09/17 03/09/17 14:41 15:00 22:40 WBC RBC Hgb Hct MCV MCH MCHC RDW Plt Count MPV Sodium Potassium Chloride Carbon Dioxide Anion Gap BUN Creatinine Creat Clearance w eGFR POC Glucometer 147 Random Glucose Calcium Total Bilirubin AST ALT Alkaline Phosphatase Total Protein Albumin Urine Color Yellow Urine Appearance Clear Urine pH 5.0 Ur Specific [place] 1.018 Urine Protein Negative Urine Glucose (UA) 1+ H Urine Ketones Negative Urine Blood Negative Urine Nitrite Negative Urine Bilirubin Negative Urine Urobilinogen Negative Ur Leukocyte Esterase Negative RPR Titer HIV 1&2 Antibody Screen Negative HIV P24 Antigen Negative 03/10/17 03/10/17 03/10/17 05:15 06:00 06:00 WBC 8.0 D RBC 4.85 Hgb 14.4 Hct 43.9 MCV 90.5 MCH 29.6 MCHC 32.7 RDW 13.0 Plt Count 174 D MPV 9.1 Sodium 139 Potassium 4.1 Chloride 99 Carbon Dioxide 31 Anion Gap 9 BUN 20 H D Creatinine 0.8 Creat Clearance w eGFR > 60 POC Glucometer 179 Random Glucose 142 H D Calcium 9.2 Total Bilirubin 0.4 AST 78 H ALT 100 H Alkaline Phosphatase 158 H D Total Protein 7.6 Albumin 3.8 D Urine Color Urine Appearance Urine pH Ur Specific [place] Urine Protein Urine Glucose (UA) Urine Ketones Urine Blood Urine Nitrite Urine Bilirubin Urine Urobilinogen Ur Leukocyte Esterase RPR Titer HIV 1&2 Antibody Screen HIV P24 Antigen 03/10/17 03/10/17 03/11/17 06:00 16:29 06:04 WBC RBC Hgb Hct MCV MCH MCHC RDW Plt Count MPV Sodium Potassium Chloride Carbon Dioxide Anion Gap BUN Creatinine Creat Clearance w eGFR POC Glucometer 182 127 Random Glucose Calcium Total Bilirubin AST ALT Alkaline Phosphatase Total Protein Albumin Urine Color Urine Appearance Urine pH Ur Specific [place] Urine Protein Urine Glucose (UA) Urine Ketones Urine Blood Urine Nitrite Urine Bilirubin Urine Urobilinogen Ur Leukocyte Esterase RPR Titer Nonreactive HIV 1&2 Antibody Screen HIV P24 Antigen pt aox3 in nad ambulating feet dry scaly Assessment: 03/11/17 12:27 withdrawal sx's t.pedis Plan: cont. detox increaese fluids lotrisone cream bid
[2017-03-11] MEDS: chlordiazePOXIDE HCL 25 MG CAPSULE PO PRN (15:20)
[2017-03-11] MEDS ORDERED: INSULIN (NOVOLOG) ASPART 100 UNITS/ML 10ML VIAL ONE (17:45)
[2017-03-11] MEDS: IBUPROFEN 400 MG TABLET (FP) PO PRN (18:00)
[2017-03-11] MEDS: chlordiazePOXIDE 5 MG CAPSULE PO SCH (22:42)
[2017-03-11] MEDS: QUEtiapine FUMARATE 50 MG TABLET PO SCH (22:42)
[2017-03-11] MEDS: THIAMINE HCL 100 MG TABLET (FP) PO SCH (22:43)
[2017-03-11] MEDS: ACETAMINOPHEN 325 MG TABLET (FP) PO PRN (22:45)
[2017-03-11] MEDS: CLOTRIMAZOLE/BETAMET DIPROP 15 GM TUBE TP SCH (23:13)
[2017-03-12] MEDS ORDERED: METHADONE HCL 10 MG TABLET ONE (04:28)
[2017-03-12] MEDS ORDERED: METHADONE HCL 40 MG DISPERSABLE TABLET ONE (04:28)
[2017-03-12] MEDS: METHADONE 40 MG, METHADONE 30 MG PO SCH (05:51)
[2017-03-12] MEDS: chlordiazePOXIDE 5 MG CAPSULE PO SCH ×3 (05:52→17:30)
[2017-03-12] MEDS: metFORMIN HCL 500 MG TABLET (FP) PO SCH ×2 (08:11→17:30)
[2017-03-12] MEDS: INSULIN SLIDING SCALE (NOVOLOG) 1 VIAL SQ SCH ×2 (08:12→17:29)
[2017-03-12] MEDS: ENALAPRIL MALEATE 10 MG TABLET (FP) PO SCH (10:07)
[2017-03-12] MEDS: TOLNAFTATE 1% CREAM 15 GM TUBE TP SCH ×2 (10:07→22:29)
[2017-03-12] MEDS: SERTRALINE HCL 50 MG TABLET (FP) PO SCH (10:07)
[2017-03-12] MEDS: PRENATAL VITAMINS W/ FOLIC ACID TABLET (FP) PO SCH (10:07)
[2017-03-12] MEDS: GABAPENTIN 300 MG CAPSULE (FP) PO SCH ×2 (10:07→22:29)
[2017-03-12] MEDS: ASPIRIN 81 MG CHEWABLE TABLETS PO SCH (10:08)
[2017-03-12] MEDS: CLOTRIMAZOLE/BETAMET DIPROP 15 GM TUBE TP SCH ×2 (10:08→22:29)
[2017-03-12] MEDS: TOLNAFTATE 1% POWDER 45 GM POW TP SCH ×2 (10:08→22:29)
[2017-03-12] MEDS: NICOTINE 14 MG/24 HOURS TOPICAL PATCH TD SCH (10:08)
[2017-03-12] MEDS: ACETAMINOPHEN 325 MG TABLET (FP) PO PRN (11:08)
--- NOTE | 2017-03-12 13:56 | PN ---
BHS Progress Note (SOAP) Subjective: mild tremor feel better alert oriented x 3 no acute distress walking into room 668 frequent made aware of unit roles and regulations Objective: 03/12/17 13:56 Vital Signs Temperature 96.3 F L 03/12/17 13:43 Pulse Rate 68 03/12/17 13:43 Respiratory Rate 18 03/12/17 13:43 Blood Pressure 136/79 03/12/17 13:43 O2 Sat by Pulse Oximetry (%) Laboratory Last Values WBC 8.0 K/mm3 (4.0-10.0) D 03/10/17 06:00 RBC 4.85 M/mm3 (4.00-5.60) 03/10/17 06:00 Hgb 14.4 GM/dL (11.7-16.9) 03/10/17 06:00 Hct 43.9 % (35.4-49) 03/10/17 06:00 MCV 90.5 fl (80-96) 03/10/17 06:00 MCH 29.6 pg (25.7-33.7) 03/10/17 06:00 MCHC 32.7 g/dl (32.0-35.9) 03/10/17 06:00 RDW 13.0 % (11.9-15.9) 03/10/17 06:00 Plt Count 174 K/MM3 (134-434) D 03/10/17 06:00 MPV 9.1 fl (7.5-11.1) 03/10/17 06:00 Sodium 139 mmol/L (136-145) 03/10/17 06:00 Potassium 4.1 mmol/L (3.5-5.1) 03/10/17 06:00 Chloride 99 mmol/L (98-107) 03/10/17 06:00 Carbon Dioxide 31 mmol/L (21-32) 03/10/17 06:00 Anion Gap 9 (8-16) 03/10/17 06:00 BUN 20 mg/dL (7-18) H D 03/10/17 06:00 Creatinine 0.8 mg/dL (0.7-1.3) 03/10/17 06:00 Creat Clearance w eGFR > 60 (>60) 03/10/17 06:00 POC Glucometer 197 UNITS (80-120) 03/12/17 05:50 Random Glucose 142 mg/dL (74-106) H D 03/10/17 06:00 Calcium 9.2 mg/dL (8.5-10.1) 03/10/17 06:00 Total Bilirubin 0.4 mg/dL (0.2-1.0) 03/10/17 06:00 AST 78 U/L (15-37) H 03/10/17 06:00 ALT 100 U/L (12-78) H 03/10/17 06:00 Alkaline Phosphatase 158 U/L (45-117) H D 03/10/17 06:00 Total Protein 7.6 g/dl (6.4-8.2) 03/10/17 06:00 Albumin 3.8 g/dl (3.4-5.0) D 03/10/17 06:00 Urine Color Yellow 03/09/17 22:40 Urine Appearance Clear 03/09/17 22:40 Urine pH 5.0 (5.0-8.0) 03/09/17 22:40 Ur Specific [place] 1.018 (1.001-1.035) 03/09/17 22:40 Urine Protein Negative (NEGATIVE) 03/09/17 22:40 Urine Glucose (UA) 1+ (NEGATIVE) H 03/09/17 22:40 Urine Ketones Negative (NEGATIVE) 03/09/17 22:40 Urine Blood Negative (NEGATIVE) 03/09/17 22:40 Urine Nitrite Negative (NEGATIVE) 03/09/17 22:40 Urine Bilirubin Negative (NEGATIVE) 03/09/17 22:40 Urine Urobilinogen Negative mg/dL (0.2-1.0) 03/09/17 22:40 Ur Leukocyte Esterase Negative (NEGATIVE) 03/09/17 22:40 RPR Titer Nonreactive (NONREACTIVE) 03/10/17 06:00 HIV 1&2 Antibody Screen Negative 03/09/17 15:00 HIV P24 Antigen Negative 03/09/17 15:00 lab noted Assessment: 03/12/17 13:58 withdrawal sx Plan: continue detox
[2017-03-12] MEDS ORDERED: INSULIN (NOVOLOG) ASPART 100 UNITS/ML 10ML VIAL ONE (17:27)
[2017-03-12] MEDS: IBUPROFEN 400 MG TABLET (FP) PO PRN (19:47)
[2017-03-12] MEDS: THIAMINE HCL 100 MG TABLET (FP) PO SCH (22:29)
[2017-03-12] MEDS: QUEtiapine FUMARATE 50 MG TABLET PO SCH (22:29)
[2017-03-12] MEDS: chlordiazePOXIDE HCL 10 MG CAPSULE PO SCH (22:29)
[2017-03-13] MEDS ORDERED: METHADONE HCL 10 MG TABLET ONE (04:53)
[2017-03-13] MEDS ORDERED: METHADONE HCL 40 MG DISPERSABLE TABLET ONE (04:53)
[2017-03-13] MEDS: METHADONE 40 MG, METHADONE 30 MG PO SCH (05:13)
[2017-03-13] MEDS: chlordiazePOXIDE HCL 10 MG CAPSULE PO SCH (05:15)
[2017-03-13] MEDS: metFORMIN HCL 500 MG TABLET (FP) PO SCH (06:46)
[2017-03-13] MEDS: INSULIN SLIDING SCALE (NOVOLOG) 1 VIAL SQ SCH (06:46)
[2017-03-13 07:37] VITALS: BP 132/79; PULSE 58; TEMP 98.1
--- NOTE | 2017-03-13 09:00 | DS ---
[facility] Detox Discharge Summary Admission Date: 03/09/17 Discharge Date: 03/13/17 - History Present History: Alcohol Dependence, Cocaine Dependence, Opioid Dependence Pertinent Past History: DM, anxiety, depression and insomnia, nicotine dependence - Physical Exam Results Vital Signs: Vital Signs Temperature 98.1 F 03/13/17 07:36 Pulse Rate 58 L 03/13/17 07:36 Respiratory Rate 16 03/13/17 07:36 Blood Pressure 132/79 03/13/17 07:36 O2 Sat by Pulse Oximetry (%) Laboratory Tests 03/09/17 03/09/17 03/09/17 14:41 15:00 22:40 WBC RBC Hgb Hct MCV MCH MCHC RDW Plt Count MPV Sodium Potassium Chloride Carbon Dioxide Anion Gap BUN Creatinine Creat Clearance w eGFR POC Glucometer 147 Random Glucose Calcium Total Bilirubin AST ALT Alkaline Phosphatase Total Protein Albumin Urine Color Yellow Urine Appearance Clear Urine pH 5.0 Ur Specific [place] 1.018 Urine Protein Negative Urine Glucose (UA) 1+ H Urine Ketones Negative Urine Blood Negative Urine Nitrite Negative Urine Bilirubin Negative Urine Urobilinogen Negative Ur Leukocyte Esterase Negative RPR Titer HIV 1&2 Antibody Screen Negative HIV P24 Antigen Negative 03/10/17 03/10/17 03/10/17 05:15 06:00 06:00 WBC 8.0 D RBC 4.85 Hgb 14.4 Hct 43.9 MCV 90.5 MCH 29.6 MCHC 32.7 RDW 13.0 Plt Count 174 D MPV 9.1 Sodium 139 Potassium 4.1 Chloride 99 Carbon Dioxide 31 Anion Gap 9 BUN 20 H D Creatinine 0.8 Creat Clearance w eGFR > 60 POC Glucometer 179 Random Glucose 142 H D Calcium 9.2 Total Bilirubin 0.4 AST 78 H ALT 100 H Alkaline Phosphatase 158 H D Total Protein 7.6 Albumin 3.8 D Urine Color Urine Appearance Urine pH Ur Specific [place] Urine Protein Urine Glucose (UA) Urine Ketones Urine Blood Urine Nitrite Urine Bilirubin Urine Urobilinogen Ur Leukocyte Esterase RPR Titer HIV 1&2 Antibody Screen HIV P24 Antigen 03/10/17 03/10/17 03/11/17 06:00 16:29 06:04 WBC RBC Hgb Hct MCV MCH MCHC RDW Plt Count MPV Sodium Potassium Chloride Carbon Dioxide Anion Gap BUN Creatinine Creat Clearance w eGFR POC Glucometer 182 127 Random Glucose Calcium Total Bilirubin AST ALT Alkaline Phosphatase Total Protein Albumin Urine Color Urine Appearance Urine pH Ur Specific [place] Urine Protein Urine Glucose (UA) Urine Ketones Urine Blood Urine Nitrite Urine Bilirubin Urine Urobilinogen Ur Leukocyte Esterase RPR Titer Nonreactive HIV 1&2 Antibody Screen HIV P24 Antigen 03/11/17 03/12/17 03/12/17 16:51 05:50 16:50 WBC RBC Hgb Hct MCV MCH MCHC RDW Plt Count MPV Sodium Potassium Chloride Carbon Dioxide Anion Gap BUN Creatinine Creat Clearance w eGFR POC Glucometer 203 197 223 Random Glucose Calcium Total Bilirubin AST ALT Alkaline Phosphatase Total Protein Albumin Urine Color Urine Appearance Urine pH Ur Specific [place] Urine Protein Urine Glucose (UA) Urine Ketones Urine Blood Urine Nitrite Urine Bilirubin Urine Urobilinogen Ur Leukocyte Esterase RPR Titer HIV 1&2 Antibody Screen HIV P24 Antigen 03/13/17 05:13 WBC RBC Hgb Hct MCV MCH MCHC RDW Plt Count MPV Sodium Potassium Chloride Carbon Dioxide Anion Gap BUN Creatinine Creat Clearance w eGFR POC Glucometer 133 Random Glucose Calcium Total Bilirubin AST ALT Alkaline Phosphatase Total Protein Albumin Urine Color Urine Appearance Urine pH Ur Specific [place] Urine Protein Urine Glucose (UA) Urine Ketones Urine Blood Urine Nitrite Urine Bilirubin Urine Urobilinogen Ur Leukocyte Esterase RPR Titer HIV 1&2 Antibody Screen HIV P24 Antigen Pertinent Admission Physical Exam Findings: withdrawal sx - Treatment Hospital Course: Detox Protocol Followed, Detoxed Safely, Responded well, Discharged Condition Good, Rehab Referral Accepted - Medication Discharge Medications: Ambulatory Orders Metformin HCl [Glucophage] 500 mg PO BID 04/23/12 Sertraline HCl [Zoloft -] 100 mg PO DAILY #30 tablet 03/22/15 Gabapentin [Neurontin -] 300 mg PO BID 03/09/17 Insulin (Novolog) [Novolog -] 5 units SQ AC 03/09/17 Methadone [Dolophine -] 70 mg PO DAILY 03/09/17 Quetiapine Fumarate [Seroquel -] 50 mg PO HS 03/09/17 Aspirin [ASA -] 81 mg PO DAILY #30 tab.chew 03/12/17 Enalapril Maleate [Vasotec -] 10 mg PO DAILY #30 tablet 03/12/17 - Diagnosis (1) Cocaine dependence, uncomplicated Status: Acute (2) IDDM (insulin dependent diabetes mellitus) Status: Acute (3) Opiate dependence Status: Acute (4) Substance induced mood disorder Status: Acute (5) Substance-induced sleep disorder Status: Acute (6) Alcohol dependence with uncomplicated withdrawal Status: Chronic (7) Bipolar disorder Status: Chronic Qualifiers: Most recent bipolar episode type: most recent episode unspecified type (8) DM Diabetes mellitus type 2 Status: Chronic (9) Essential hypertension Status: Chronic (10) Hepatitis C Status: Chronic Qualifiers: Viral hepatitis chronicity: chronic Hepatic coma status: without hepatic coma Qualified Code(s): B18.2 - Chronic viral hepatitis C (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
== END 2017-03-13 07:15 | disposition home or self-care (01) | DRG 773 ==
LOC: YASAS 10:19 → Y6N 15:51
PROVIDERS: ADMIT Internal Medicine; ATTEND Internal Medicine
PROC: HZ2ZZZZ Detoxification Services for Substance Abuse Treatment (ICD-10-PCS; principal; 2017-03-09)
DX: F11.20 Opioid dependence, uncomplicated (principal); F10.230 Alcohol dependence with withdrawal, uncomplicated; F14.20 Cocaine dependence, uncomplicated; F17.213 Nicotine dependence, cigarettes, with withdrawal; F19.24 Other psychoactive substance dependence with psychoactive substance-induced mood disorder; F19.282 Other psychoactive substance dependence with psychoactive substance-induced sleep disorder; F31.9 Bipolar disorder, unspecified; B18.2 Chronic viral hepatitis C; E11.9 Type 2 diabetes mellitus without complications; Z79.4 Long term (current) use of insulin; Z86.69 Personal history of other diseases of the nervous system and sense organs
CPT/HCPCS: 36415; 80053; 81003; 82962; 85027; 86593; 87389; 90688; 93005; 93010

== ENCOUNTER 2017-11-18 10:08 | Inpatient (IN) | payer OTHER ==
[2017-11-18 10:26] VITALS: BMI 31.0
--- NOTE | 2017-11-18 10:30 | HP ---
CIWA Score - CIWA Score Nausea/Vomitin Muscle Tremors: 3 Anxiety: 2 Agitation: 2 Paroxysmal Sweats: 1-Minimal Palms Moist Orientation: 0-Oriented Tacttile Disturbances: 1-Very Mild Itch/Numbness Auditory Disturbances: 1-Very Mild Visual Disturbances: 1-Very Mild Sensitivity Headache: 2-Mild CIWA-Ar Total Score: 16 Admission ROS BHS - HPI Chief Complaint: i need help to stop drinking alcohol,,cocaine Allergies/Adverse Reactions: Allergies Allergy/AdvReac Type Severity Reaction Status Date / Time Fish Containing Products Allergy Severe Rash Verified 11/18/17 10:33 No Known Drug Allergies Allergy Verified 11/18/17 10:33 bupropion HCl AdvReac Intermediate seizures Verified 11/18/17 10:33 [From Wellbutrin] History of Present Illness: this 47 years old male with alcohol and cocaine dependence,seeking detox, withdrawal symptom,also heroin abused,mmtp 130 mgs/day, last medicated today, seizure last 2016 hypertension on med type 2 dm on metformin bipolar disorder multiple admissions in detox,last admission [facility] 04/14/17 to 04/17/17 longest period osf sobriety 10 months nicotine dependence hepatititis c neuropathy Exam Limitations: No Limitations - Ebola screening Have you traveled outside of the country in the last 21 days: No Have you had contact with anyone from an Ebola affected area: No Do you have a fever: No - Review of Systems Constitutional: Loss of Appetite, Malaise, Night Sweats, Changes in sleep, Weakness, Unintentional Wgt. Loss EENT: reports: No Symptoms Reported, Nose Congestion Respiratory: reports: No Symptoms reported Cardiac: reports: No Symptoms Reported GI: reports: Diarrhea, Nausea, Poor Appetite, Abdominal cramping : reports: No Symptoms Reported Musculoskeletal: reports: See HPI, Back Pain, Muscle Pain Integumentary: reports: Dryness Neuro: reports: Headache, Tremors Endocrine: reports: No Symptoms Reported Hematology: reports: No Symptoms Reported Psychiatric: reports: No Sypmtoms Reported, Judgement Intact, Mood/Affect Appropiate, Orientated x3 (bipolar disorder,depression) Patient History - Patient Medical History Hx Anemia: No Hx Asthma: No Hx Chronic Obstructive Pulmonary Disease (COPD): No Hx Cancer: No Hx Cardiac Disorders: No Hx Congestive Heart Failure: No Hx Hypertension: Yes (on med non copliance) Hx Hypercholesterolemia: No Hx Pacemaker: No HX Cerebrovascular Accident: No Hx Seizures: Yes (last 2016) Hx Dementia: No Hx Diabetes: Yes (on metformin 500 mgs po bid) Hx Gastrointestinal Disorders: No Hx Liver Disease: Yes Hx Genitourinary Disorders: No Hx Sexually Transmitted Disorders: No Hx Renal Disease (ESRD): No Hx Thyroid Disease: No Hx Human Immunodeficiency Virus (HIV): No (NEGATIVE IN 11/03) Hx Hepatitis C: Yes (treated) Hx Depression: Yes (MDD) Hx Suicide Attempt: No Hx Bipolar Disorder: Yes Hx Schizophrenia: No Other Medical History: no suicidal,no homicidal - Patient Surgical History Past Surgical History: No Hx Neurologic Surgery: No Hx Cataract Extraction: No Hx Cardiac Surgery: No Hx Lung Surgery: No Hx Breast Surgery: No Hx Breast Biopsy: No Hx Abdominal Surgery: No Hx Appendectomy: No Hx Cholecystectomy: No Hx Genitourinary Surgery: No Hx Section: No Hx Orthopedic Surgery: No Anesthesia Reaction: No - PPD History Previous Implant?: Yes Documented Results: Negative w/proof Date: 11/28/16 Results: 0 MM PPD to be Administered?: Yes - Smoking Cessation Smoking history: Current every day smoker Have you smoked in the past 12 months: Yes Aproximately how many cigarettes per day: 10 Cigars Per Day: 0 Hx Chewing Tobacco Use: No Initiated information on smoking cessation: Yes 'Breaking Loose' booklet given: 11/18/17 - Substance & Tx. History Hx Alcohol Use: Yes Hx Substance Use: Yes Substance Use Type: Alcohol, Cocaine, Heroin Hx Substance Use Treatment: Yes ([facility] 04/14/17 to 04/17/17 detox,rehab 04/17/17 to 05/12/17) - Substances Abused Cocaine Route: Inhalation Frequency: Daily Amount used: $50 Age of first use: 13 Date of Last Use: 11/17/17 Heroin Route: Inhalation Frequency: 3-6 times per week Amount used: 3-4 bags Age of first use: 13 Date of Last Use: 11/18/17 Alcohol-beer Route: Oral Frequency: 3-6 times per week Amount used: 2-6 pks. Age of first use: 13 Date of Last Use: 11/17/17 Family Disease History - Family Disease History Family Disease History: [place]: Father (), Mother (), Other: Father , Mother Admission Physical Exam [facility] - Vital Signs Vital Signs: Vital Signs Temperature 98.5 F 11/18/17 10:23 Pulse Rate 71 11/18/17 10:23 Respiratory Rate 18 11/18/17 10:23 Blood Pressure 147/98 11/18/17 10:23 O2 Sat by Pulse Oximetry (%) - Physical General Appearance: Yes: Moderate Distress, Tremorous, Irritable, Sweating, Anxious HEENTM: Yes: [place], Pharynx Normal Respiratory: Yes: Lungs Clear, Normal Breath Sounds, No Respiratory Distress Neck: Yes: Within Normal Limits Breast: Yes: Within Normal Limits Cardiology: Yes: Within Normal Limits, Regular Rhythm, Regular Rate, S1, S2 Abdominal: Yes: Within Normal Limits, Normal Bowel Sounds, Non Tender, Soft Genitourinary: Yes: Within Normal Limits Back: Yes: Muscle Spasm Musculoskeletal: Yes: full range of Motion, Back pain, Muscle Pain Extremities: Yes: Normal Range of Motion, Tremors Neurological: Yes: lead radiologic technologist II-XII NML intact, Fully Oriented, Alert, Motor Strength 5/5 Integumentary: Yes: Dry Lymphatic: Yes: Within Normal Limits - Diagnostic (1) Alcohol dependence with uncomplicated withdrawal Current Visit: Yes Status: Acute (2) Back pain Current Visit: No Status: Acute Qualifiers: Back pain location: low back pain Chronicity: acute Back pain laterality : bilateral Sciatica presence: without sciatica Qualified Code(s): M54.5 - Low back pain (3) Cocaine dependence Current Visit: No Status: Acute (4) Tinea pedis Current Visit: No Status: Acute Qualifiers: Laterality: bilateral Qualified Code(s): B35.3 - Tinea pedis (5) DM Diabetes mellitus type 2 Current Visit: No Status: Chronic (6) Essential hypertension Current Visit: No Status: Chronic (7) Hepatitis C Current Visit: No Status: Chronic Qualifiers: Viral hepatitis chronicity: chronic Hepatic coma status: without hepatic coma Qualified Code(s): B18.2 - Chronic viral hepatitis C (8) Opioid dependence on agonist therapy Current Visit: Yes Status: Acute (9) Bipolar II disorder Current Visit: No Status: Suspected (10) Heroin abuse Current Visit: Yes Status: Acute (11) Weight loss Current Visit: Yes Status: Acute (12) Seizure Current Visit: Yes Status: Acute Cleared for Admission [facility] - Detox or Rehab [facility] Level of Care: Medically Managed Detox Regimen/Protocol: Pamela [facility] Breath Alcohol Content Breath Alcohol Content: 0
[2017-11-18] MEDS ORDERED: P-EPHED 60MG/TRIPROLIDI 2.5MG TABLET PO PRN (10:44)
[2017-11-18] MEDS ORDERED: MAGNESIUM CITRATE 300 ML BOTTLE PO PRN (10:44)
[2017-11-18] MEDS ORDERED: MAG HYDROX/AL HYDROX/SIMETH 30 ML UNIT-DOSE CUP PO PRN (10:44)
[2017-11-18] MEDS ORDERED: MAGNESIUM HYDROX 2400MG/30ML ORAL SUSPENSION 30 ML CUP PO PRN (10:44)
[2017-11-18] MEDS ORDERED: IBUPROFEN 400 MG TABLET (FP) PO PRN (10:44)
[2017-11-18] MEDS ORDERED: ACETAMINOPHEN 325 MG TABLET (FP) PO PRN (10:44)
[2017-11-18] MEDS ORDERED: LOPERAMIDE HCL 2 MG CAPSULE PO PRN (10:44)
[2017-11-18] MEDS ORDERED: hydrOXYzine PAMOATE 50 MG CAPSULE (FP) PO PRN (10:44)
[2017-11-18] MEDS ORDERED: MENTHOL/PHENOL 1 EACH UD MM PRN (10:44)
[2017-11-18] MEDS ORDERED: guaiFENesin/D-METHORPHAN HB 10 ML UNIT-DOSE CUPS PO PRN (10:44)
[2017-11-18] MEDS: ENALAPRIL MALEATE 10 MG TABLET (FP) PO SCH (12:27)
[2017-11-18] MEDS: chlordiazePOXIDE HCL 25 MG CAPSULE PO PRN (12:28)
[2017-11-18] MEDS ORDERED: INSULIN (NOVOLOG) ASPART 100 UNITS/ML 10ML VIAL ONE ×3 (12:34→21:33)
[2017-11-18] MEDS: INSULIN SLIDING SCALE (NOVOLOG) 1 VIAL SQ SCH ×3 (12:34→22:28)
[2017-11-18] MEDS: NICOTINE 21 MG/24 HOURS TOPICAL PATCH TD SCH (12:36)
[2017-11-18 14:47] LABS: URINE APPEARANCE CLEAR; URINE BILIRUBIN NEGATIVE (<2.0 mg/dL); URINE COLOR YELLOW; URINE GLUCOSE (UA) 2+ (NEGATIVE); URINE KETONE NEGATIVE (NEGATIVE); URINE LEUK ESTERASE NEGATIVE (NEGATIVE); URINE NITRITE NEGATIVE (NEGATIVE); URINE PROTEIN NEGATIVE (NEGATIVE); URINE UROBILINOGEN NEGATIVE mg/dL (0.2-1.0)
--- NOTE | 2017-11-18 15:50 | CONSULT ---
[facility] Psychiatric Consult - Data Date of interview: 11/18/17 Admission source: [facility] Identifying data: Another admission to [facility] for this 47 y/o [place] male seeking detox treatment on for alcohol,cocaine,opioid and benzodiazepine dependence.Patient is ,a father of one,domiciled, unemployed and supported on Public Assistance. Substance Abuse History: Confirmed by the patient.Details in current [facility] report : Smoking history: Current every day smoker. Have you smoked in the past 12 months: Yes. Aproximately how many cigarettes per day: 10. Cigars Per Day: 0. Hx Chewing Tobacco Use: No. Initiated information on smoking cessation: Yes. 'Breaking Loose' booklet given: 11/18/17. - Substance & Tx. History. Hx Alcohol Use: Yes. Hx Substance Use: Yes. Substance Use Type: Alcohol, Cocaine , Heroin. Hx Substance Use Treatment: Yes ([facility] 04/14/17 to 04/17/17 detox, rehab 04/17/17 to 05/12/17) Medical History: History of withdrawal-related seizures,insulin-dependent diabetes mellitus,hepatitis C,neuropathy and hypertension. Psychiatric History: Patient denies history of psychiatric hospitalizations.Sees a psychiatrist at [facility] in the [place].Diagnosed with ADHD (in childhoodd),Bipolar Disorder and PTSD (self-report). Prescribed seroquel 50 mg /hs + zoloft 100 mg/day (primary care physician).Patient reports that he stopped OPD care at [facility] about a year ago.Mr Uribe is currently on methadone maintenance (130 mg/day).He denies history of suicide attempts. Physical/Sexual Abuse/Trauma History: Patient denies. Additional Comment: Toxicology not available. Mental Status Exam - Mental Status Exam Alert and Oriented to: Time, Place, Person Cognitive Function: Good Patient Appearance: Well Groomed Mood: Withdrawn, Hopeful Affect: Appropriate, Normal Range Patient Behavior: Fatigued, Cooperative Speech Pattern: Clear Voice Loudness: Normal Thought Process: Intact, Goal Oriented Thought Disorder: Not Present Hallucinations: Denies Suicidal Ideation: Denies Homicidal Ideation: Denies Insight/Judgement: Poor Sleep: Poorly, Difficulty falling asleep Appetite: Good Muscle strength/Tone: Normal Gait/Station: Normal Psychiatric Findings - Problem List ([place] 1, 2,3) (1) Opioid dependence on agonist therapy Current Visit: Yes Status: Acute (2) Alcohol dependence with uncomplicated withdrawal Current Visit: Yes Status: Acute (3) Cocaine dependence, uncomplicated Current Visit: Yes Status: Acute (4) Nicotine dependence Current Visit: Yes Status: Acute (5) Substance induced mood disorder Current Visit: Yes Status: Acute (6) Insomnia Current Visit: Yes Status: Acute - Initial Treatment Plan Initial Treatment Plan: Psychoeducation.Sleep hygiene.Detoxification in progress.Medications resumed at patient's request : zoloft 100 mg po daily + seroquel 50 mg po hs. Side effects/benefits of both drugs are discussed with the patient.Agrees to this careplan.Observation.
[2017-11-18] MEDS: metFORMIN HCL 500 MG TABLET (FP) PO SCH (17:16)
[2017-11-18] MEDS: chlordiazePOXIDE HCL 25 MG CAPSULE PO SCH ×2 (17:16→22:25)
[2017-11-18] MEDS ORDERED: MELATONIN 5 MG TABLETS PO PRN (22:00)
[2017-11-18] MEDS: AMMONIUM LACTATE 12% LOTION 225 GM BOTTLE TP SCH (22:24)
[2017-11-18] MEDS: GABAPENTIN 300 MG CAPSULE (FP) PO SCH (22:25)
[2017-11-18] MEDS: THIAMINE HCL 100 MG TABLET (FP) PO SCH (22:25)
[2017-11-18] MEDS: QUEtiapine FUMARATE 50 MG TABLET PO SCH (22:25)
[2017-11-18] MEDS: TOLNAFTATE 1% CREAM 15 GM TUBE TP SCH (22:25)
[2017-11-19] MEDS ORDERED: METHADONE HCL 10 MG TABLET ONE (04:45)
[2017-11-19] MEDS ORDERED: METHADONE HCL 40 MG DISPERSABLE TABLET ONE (04:46)
[2017-11-19] MEDS ORDERED: METHADONE HCL 40 MG DISPERSABLE TABLET PO SCH (06:00)
[2017-11-19] MEDS: METHADONE 120 MG, METHADONE 10 MG PO SCH (06:38)
[2017-11-19] MEDS: chlordiazePOXIDE HCL 25 MG CAPSULE PO SCH ×2 (06:39→11:05)
[2017-11-19] MEDS: metFORMIN HCL 500 MG TABLET (FP) PO SCH ×2 (06:44→17:34)
[2017-11-19] MEDS ORDERED: INSULIN (NOVOLOG) ASPART 100 UNITS/ML 10ML VIAL ONE ×3 (08:00→21:18)
[2017-11-19] MEDS: INSULIN SLIDING SCALE (NOVOLOG) 1 VIAL SQ SCH ×4 (08:02→22:08)
[2017-11-19 10:03] LABS: HEMATOCRIT 43.4 % (35.4-49); HEMOGLOBIN 14.1 GM/dL (11.7-16.9); MCH 28.9 pg (25.7-33.7); MCHC 32.4 g/dl (32.0-35.9); MEAN CELL VOLUME 89.3 fl (80-96); MEAN PLT VOLUME 9.5 fl (7.5-11.1); PLATELET COUNT 193 K/MM3 (134-434); RBC 4.86 M/mm3 (4.00-5.60); RDW 13.3 % (11.9-15.9); WHITE BLOOD COUNT 8.4 K/mm3 (4.0-10.0)
[2017-11-19] MEDS: TOLNAFTATE 1% CREAM 15 GM TUBE TP SCH ×2 (10:13→22:09)
[2017-11-19] MEDS: GABAPENTIN 300 MG CAPSULE (FP) PO SCH (10:13)
[2017-11-19] MEDS: NICOTINE 21 MG/24 HOURS TOPICAL PATCH TD SCH (10:13)
[2017-11-19] MEDS: PRENATAL VITAMINS W/ FOLIC ACID TABLET (FP) PO SCH (10:13)
[2017-11-19] MEDS: SERTRALINE HCL 50 MG TABLET (FP) PO SCH (10:13)
[2017-11-19] MEDS: AMMONIUM LACTATE 12% LOTION 225 GM BOTTLE TP SCH ×2 (10:13→22:06)
[2017-11-19] MEDS: ASPIRIN 81 MG CHEWABLE TABLETS PO SCH (10:13)
[2017-11-19] MEDS: ENALAPRIL MALEATE 10 MG TABLET (FP) PO SCH (10:13)
[2017-11-19 10:26] LABS: ALBUMIN 3.6 g/dl (3.4-5.0); ALK PHOS 156 U/L (45-117); ANION GAP 9 MMOL/L (8-16); BILIRUBIN,TOTAL 0.5 mg/dL (0.2-1); BLOOD UREA NITROGEN 23 mg/dL (7-18); CALCIUM 9.7 mg/dL (8.5-10.1); CHLORIDE 101 mmol/L (98-107); CO2 28 mmol/L (21-32); CREATININE 0.8 mg/dL (0.55-1.3); GLUCOSE,RANDOM 238 mg/dL (74-106); POTASSIUM 4.3 mmol/L (3.5-5.1); SGOT/AST 44 U/L (15-37); SGPT/ALT 72 U/L (13-61); SODIUM 137 mmol/L (136-145); TOT PROT 7.5 g/dl (6.4-8.2)
--- NOTE | 2017-11-19 11:07 | PN ---
S CIWA - CIWA Score Nausea/Vomitin Muscle Tremors: None Anxiety: 2 Agitation: 1-Slight > Activity Paroxysmal Sweats: 2 Orientation: 0-Oriented Tacttile Disturbances: 0-None Auditory Disturbances: 0-None Visual Disturbances: 0-None Headache: 2-Mild CIWA-Ar Total Score: 10 BHS Progress Note (SOAP) Subjective: PATIENT STATES " I AM TRYING TO HANG IN THERE". RECEIVING DETOX TREATMENT FOR ETOH WITHDRAWAL. S/O NAUSEA/DIARRHEA, SWEATS AND HEADACHE. Objective: 11/19/17 11:05 Vital Signs Temperature 96.9 F L 11/19/17 10:15 Pulse Rate 63 11/19/17 10:15 Respiratory Rate 20 11/19/17 10:15 Blood Pressure 114/70 11/19/17 10:15 O2 Sat by Pulse Oximetry (%) Laboratory Tests 11/18/17 11/18/17 11/18/17 10:53 12:00 12:31 WBC RBC Hgb Hct MCV MCH MCHC RDW Plt Count MPV Sodium Potassium Chloride Carbon Dioxide Anion Gap BUN Creatinine Creat Clearance w eGFR POC Glucometer 206 228 Random Glucose Calcium Total Bilirubin AST ALT Alkaline Phosphatase Total Protein Albumin Urine Color Yellow Urine Appearance Clear Urine pH 5.0 Ur Specific Chancellor 1.014 Urine Protein Negative Urine Glucose (UA) 2+ H Urine Ketones Negative Urine Blood Negative Urine Nitrite Negative Urine Bilirubin Negative Urine Urobilinogen Negative Ur Leukocyte Esterase Negative 11/18/17 11/18/17 11/19/17 16:18 21:18 06:00 WBC 8.4 RBC 4.86 Hgb 14.1 Hct 43.4 MCV 89.3 MCH 28.9 MCHC 32.4 RDW 13.3 Plt Count 193 MPV 9.5 Sodium Potassium Chloride Carbon Dioxide Anion Gap BUN Creatinine Creat Clearance w eGFR POC Glucometer 176 182 Random Glucose Calcium Total Bilirubin AST ALT Alkaline Phosphatase Total Protein Albumin Urine Color Urine Appearance Urine pH Ur Specific Chancellor Urine Protein Urine Glucose (UA) Urine Ketones Urine Blood Urine Nitrite Urine Bilirubin Urine Urobilinogen Ur Leukocyte Esterase 11/19/17 11/19/17 06:00 06:33 WBC RBC Hgb Hct MCV MCH MCHC RDW Plt Count MPV Sodium 137 Potassium 4.3 Chloride 101 Carbon Dioxide 28 Anion Gap 9 BUN 23 H Creatinine 0.8 Creat Clearance w eGFR > 60 POC Glucometer 168 Random Glucose 238 H Calcium 9.7 Total Bilirubin 0.5 AST 44 H ALT 72 H Alkaline Phosphatase 156 H Total Protein 7.5 Albumin 3.6 Urine Color Urine Appearance Urine pH Ur Specific Chancellor Urine Protein Urine Glucose (UA) Urine Ketones Urine Blood Urine Nitrite Urine Bilirubin Urine Urobilinogen Ur Leukocyte Esterase ALERT AND ORIENTED AMB AD FILIPPO SKIN +FACIAL MOISTURE GI SOFT, bs+, ND,NT EXT FULL ROM Assessment: 11/19/17 11:07 WITHDRAWAL SYNDROME Plan: DETOX PER PROTOCOL CONTINUE TO ENCOURAGE ORAL FLUIDS CONTINUE TO MONITOR
[2017-11-19] MEDS ORDERED: FLU VACCINE QUAD 60 MCG/0.5 ML (MDV 18-19) IM ONE (12:00)
--- NOTE | 2017-11-19 14:59 | PN ---
Progress Note, Physician Chief Complaint: ASked by FACILITIES OFFICER to see patient for sedation. Saw him with Suad Washburn NP. We found him in the day room, nodding off at the table. He was escorted back to his room where he told us he felt very over-sedated. He has been "walking [facility] and urinating in the corner" because of feeling so "out of it." Denies any falls. No LOC. He is on Seroquel 50mg and Zoloft 100mg at home and this was re-started by psychiatry. In addition, he was put on Neurontin 300mg BID. He is on a Librium protocol for alcohol withdrawal prophylaxis. He reports drinking 2 six packs a day for the last year. Denies any alcohol withdrawal seizures/DT's, does not wake up needing to drink bc of withdrawal symptoms. His only risk factor for severe withdrawal is having been through detox 8 times. He is on methadone 130mg a day verified for OUD. Home Medication List Medication Instructions Recorded Confirmed Type Insulin (Novolog) [Novolog -] 0 units SQ TID PRN 11/18/17 11/18/17 History Active Medications Generic Name Dose Route Start Last Admin Trade Name Freq PRN Reason Stop Dose Admin Acetaminophen 650 mg 11/18/17 10:44 Tylenol - PO Q4H PRN FEVER Al Hydroxide/Mg Hydroxide 30 ml 11/18/17 10:44 Mylanta Oral Suspension - PO Q6H PRN DYSPEPSIA Aspirin 81 mg 11/19/17 10:00 11/19/17 10:13 Asa - PO 81 mg DAILY EMMA Administration Chlordiazepoxide HCl 25 mg 11/19/17 17:00 Librium - PO 11/20/17 11:01 [id number] EMMA Chlordiazepoxide HCl 15 mg 11/20/17 17:00 Librium - PO 11/21/17 11:01 [id number] EMMA Chlordiazepoxide HCl 25 mg 11/18/17 10:44 11/18/17 12:28 Librium - PO 11/21/17 10:43 25 mg Q4H PRN Administration WITHDRAWAL(CONT SUBST) Chlordiazepoxide HCl 10 mg 11/21/17 17:00 Librium - PO 11/22/17 11:01 [id number] EMMA Enalapril Maleate 10 mg 11/18/17 11:00 11/19/17 10:13 Vasotec - PO 10 mg DAILY EMMA Administration Eucalyptus/Menthol/Phenol/Sorbitol 1 each 11/18/17 10:44 Cepastat Lozenge - MM Q4H PRN SORE THROAT Gabapentin 300 mg 11/18/17 22:00 11/19/17 10:13 Neurontin - PO 300 mg BID EMMA Administration Guaifenesin 10 ml 11/18/17 10:44 Robitussin Dm - PO Q6H PRN COUGH Hydroxyzine Pamoate 50 mg 11/18/17 10:44 Vistaril - PO Q4H PRN AGITATION Ibuprofen 400 mg 11/18/17 10:44 Motrin - PO Q6H PRN PAIN LEVEL 4-6 Insulin Aspart 1 vial 11/18/17 11:00 11/19/17 11:40 Novolog Vial Sliding Scale - SQ 6 units ACHS EMMA Administration Protocol Lactic Acid 1 applic 11/18/17 22:00 11/19/17 10:13 Lac-Hydrin 12 TP 1 applic BID EMMA Administration Loperamide HCl 4 mg 11/18/17 10:44 Imodium - PO Q6H PRN DIARRHEA Magnesium Citrate 300 ml 11/18/17 10:44 Citroma - PO Q48H PRN CONSTIPATION Magnesium Hydroxide 30 ml 11/18/17 10:44 Milk Of Magnesia - PO DAILY PRN CONSTIPATION Melatonin 5 mg 11/18/17 22:00 Melatonin PO HS PRN INSOMNIA Metformin HCl 500 mg 11/18/17 16:30 11/19/17 06:44 Glucophage - PO 500 mg BID@0700,1630 EMMA Administration Methadone HCl 120 mg/ 130 mg 11/19/17 06:00 11/19/17 06:38 Methadone HCl 10 mg PO 11/25/17 05:59 130 mg DAILY@0600 EMMA Administration Nicotine 21 mg 11/18/17 11:00 11/18/17 12:36 Nicoderm Patch - TD Not Given DAILY [facility] Multivit/Folic Acid/Iron 1 tab 11/19/17 10:00 11/19/17 10:13 Vitamins (Sjr) - PO 1 tab DAILY EMMA Administration Pseudoephedrine/Triprolidine 1 combo 11/18/17 10:44 Actifed - PO TID PRN NASAL CONGESTION Quetiapine Fumarate 50 mg 11/18/17 22:00 10/03/18 22:25 Seroquel - PO 50 mg HS [facility] Administration Sertraline HCl 100 mg 11/19/17 10:00 11/19/17 10:13 Zoloft - PO 100 mg DAILY [facility] Administration Thiamine HCl 100 mg 11/18/17 22:00 11/18/17 22:25 Vitamin B1 - PO 100 mg HS [facility] Administration Tolnaftate 1 applic 11/18/17 22:00 11/19/17 10:13 Tinactin 1% Cream - TP 1 applic BID [facility] Administration - Current Medication List Current Medications: Active Medications Acetaminophen (Tylenol -) 650 mg PO Q4H PRN PRN Reason: FEVER Al Hydroxide/Mg Hydroxide (Mylanta Oral Suspension -) 30 ml PO Q6H PRN PRN Reason: DYSPEPSIA Aspirin (Asa -) 81 mg PO DAILY [facility] Last Admin: 11/19/17 10:13 Dose: 81 mg Chlordiazepoxide HCl (Librium -) 25 mg PO [id number] [facility] Stop: 11/20/17 11:01 Chlordiazepoxide HCl (Librium -) 15 mg PO [id number] [facility] Stop: 11/21/17 11:01 Chlordiazepoxide HCl (Librium -) 25 mg PO Q4H PRN PRN Reason: WITHDRAWAL(CONT SUBST) Stop: 11/21/17 10:43 Last Admin: 11/18/17 12:28 Dose: 25 mg Chlordiazepoxide HCl (Librium -) 10 mg PO [id number] [facility] Stop: 11/22/17 11:01 Enalapril Maleate (Vasotec -) 10 mg PO DAILY [facility] Last Admin: 11/19/17 10:13 Dose: 10 mg Eucalyptus/Menthol/Phenol/Sorbitol (Cepastat Lozenge -) 1 each MM Q4H PRN PRN Reason: SORE THROAT Gabapentin (Neurontin -) 300 mg PO BID [facility] Last Admin: 11/19/17 10:13 Dose: 300 mg Guaifenesin (Robitussin Dm -) 10 ml PO Q6H PRN PRN Reason: COUGH Hydroxyzine Pamoate (Vistaril -) 50 mg PO Q4H PRN PRN Reason: AGITATION Ibuprofen (Motrin -) 400 mg PO Q6H PRN PRN Reason: PAIN LEVEL 4-6 Insulin Aspart (Novolog Vial Sliding Scale -) 1 vial SQ ACHS [facility]; Protocol Last Admin: 11/19/17 11:40 Dose: 6 units Lactic Acid (Lac-Hydrin 12) 1 applic TP BID [facility] Last Admin: 11/19/17 10:13 Dose: 1 applic Loperamide HCl (Imodium -) 4 mg PO Q6H PRN PRN Reason: DIARRHEA Magnesium Citrate (Citroma -) 300 ml PO Q48H PRN PRN Reason: CONSTIPATION Magnesium Hydroxide (Milk Of Magnesia -) 30 ml PO DAILY PRN PRN Reason: CONSTIPATION Melatonin (Melatonin) 5 mg PO HS PRN PRN Reason: INSOMNIA Metformin HCl (Glucophage -) 500 mg PO BID@0700,1630 [facility] Last Admin: 11/19/17 06:44 Dose: 500 mg Methadone HCl 120 mg/ (Methadone HCl 10 mg) 130 mg PO DAILY@0600 [facility] Stop: 11/25/17 05:59 Last Admin: 11/19/17 06:38 Dose: 130 mg Nicotine (Nicoderm Patch -) 21 mg TD DAILY [facility] Last Admin: 11/18/17 12:36 Dose: Not Given Multivit/Folic Acid/Iron ( Vitamins (Sjr) -) 1 tab PO DAILY [facility] Last Admin: 11/19/17 10:13 Dose: 1 tab Pseudoephedrine/Triprolidine (Actifed -) 1 combo PO TID PRN PRN Reason: NASAL CONGESTION Quetiapine Fumarate (Seroquel -) 50 mg PO HS [facility] Last Admin: 11/18/17 22:25 Dose: 50 mg Sertraline HCl (Zoloft -) 100 mg PO DAILY [facility] Last Admin: 11/19/17 10:13 Dose: 100 mg Thiamine HCl (Vitamin B1 -) 100 mg PO HS [facility] Last Admin: 11/18/17 22:25 Dose: 100 mg Tolnaftate (Tinactin 1% Cream -) 1 applic TP BID [facility] Last Admin: 11/19/17 10:13 Dose: 1 applic - Objective Vital Signs: Vital Signs Temperature 96.8 F L 11/19/17 14:08 Pulse Rate 63 11/19/17 14:08 Respiratory Rate 20 11/19/17 14:08 Blood Pressure 119/72 11/19/17 14:08 O2 Sat by Pulse Oximetry (%) Constitutional: Yes: No Distress, Other Eyes: Yes: WNL HENT: Yes: WNL Neurological: Yes: Lethargy Psychiatric: Yes: Other (Oriented x 3 but somnolent) Labs: CBC, BMP 11/19/17 06:00 11/19/17 06:00 Problem List - Problems (1) Alcohol dependence with uncomplicated withdrawal Assessment/Plan: Currently oversedated. Will hold standing Librium and only medicated on a PRN basis. The patient and nursing were informed of this change in protocol. Given that his history is not c/w someone who is at risk for severe withdrawal, he does not need to be on standing medication. His Neurontin will be stopped for now as well, but his regular psychiatric medications will be continued. Methadone Dose: Although this is his regular dose, it is high and could be adjusted down temporarily while he is on these other medications. That will be my next step if he remains sedated. Code(s): F10.230 - ALCOHOL DEPENDENCE WITH WITHDRAWAL, UNCOMPLICATED
[2017-11-19] MEDS ORDERED: chlordiazePOXIDE HCL 25 MG CAPSULE PO SCH (17:00)
[2017-11-19] MEDS: chlordiazePOXIDE HCL 25 MG CAPSULE PO PRN (17:36)
--- NOTE | 2017-11-19 18:57 | PN ---
[facility] Progress Note Note: Patient evaluated this afternoon by newspaper writer and Dr. Mon for over sedation. Patient stated he felt over sedated and had urinated multiple times in the corner of the room. After review of medication and detox regimen, Dr. Mon initiated plan to d/c Gabapentin and change Librium to PRN only. Patient informed of changes in plan of care and agrees with plan. Will continue to monitor clinically. Nursing staff updated on changes in plan of care as well.
[2017-11-19] MEDS: THIAMINE HCL 100 MG TABLET (FP) PO SCH (22:06)
[2017-11-19] MEDS: QUEtiapine FUMARATE 50 MG TABLET PO SCH (22:06)
--- NOTE | 2017-11-19 22:21 | EKG ---
Test Reason : Blood Pressure : / mmHG Vent. Rate : 064 BPM Atrial Rate : 064 BPM P-R Int : 188 ms QRS Dur : 084 ms QT Int : 420 ms P-R-T Axes : 052 013 007 degrees QTc Int : 433 ms NORMAL SINUS RHYTHM VOLTAGE CRITERIA FOR LEFT VENTRICULAR HYPERTROPHY ABNORMAL ECG WHEN COMPARED WITH ECG OF 14-APR-2017 15:49, NO SIGNIFICANT CHANGE WAS FOUND Confirmed by GISEL MERRILL MD ([id number]) on 11/19/2017 10:20:40 PM Referred By: Confirmed By:GISEL MERRILL MD
[2017-11-20] MEDS ORDERED: METHADONE HCL 10 MG TABLET ONE (04:24)
[2017-11-20] MEDS ORDERED: METHADONE HCL 40 MG DISPERSABLE TABLET ONE (04:24)
[2017-11-20] MEDS: METHADONE 120 MG, METHADONE 10 MG PO SCH (05:27)
[2017-11-20] MEDS: metFORMIN HCL 500 MG TABLET (FP) PO SCH ×2 (07:13→17:18)
[2017-11-20] MEDS: INSULIN SLIDING SCALE (NOVOLOG) 1 VIAL SQ SCH ×4 (07:14→21:15)
[2017-11-20] MEDS: TOLNAFTATE 1% CREAM 15 GM TUBE TP SCH ×2 (10:20→21:29)
[2017-11-20] MEDS: PRENATAL VITAMINS W/ FOLIC ACID TABLET (FP) PO SCH (10:20)
[2017-11-20] MEDS: SERTRALINE HCL 50 MG TABLET (FP) PO SCH (10:20)
[2017-11-20] MEDS: ASPIRIN 81 MG CHEWABLE TABLETS PO SCH (10:20)
[2017-11-20] MEDS: ENALAPRIL MALEATE 10 MG TABLET (FP) PO SCH (10:20)
[2017-11-20] MEDS: AMMONIUM LACTATE 12% LOTION 225 GM BOTTLE TP SCH ×2 (10:21→21:12)
[2017-11-20] MEDS: NICOTINE 21 MG/24 HOURS TOPICAL PATCH TD SCH (10:21)
[2017-11-20] MEDS: chlordiazePOXIDE HCL 25 MG CAPSULE PO PRN (10:22)
[2017-11-20] MEDS ORDERED: INSULIN (NOVOLOG) ASPART 100 UNITS/ML 10ML VIAL ONE ×3 (11:28→21:14)
--- NOTE | 2017-11-20 12:03 | PN ---
S CIWA - CIWA Score Nausea/Vomitin-Mild Nausea/No Vomiting Muscle Tremors: None Anxiety: 4-Mod. Anxious/Guarded Agitation: 4-Moderately Restless Paroxysmal Sweats: 3 Orientation: 0-Oriented Tacttile Disturbances: 0-None Auditory Disturbances: 0-None Visual Disturbances: 0-None Headache: 2-Mild CIWA-Ar Total Score: 14 S Progress Note (SOAP) Subjective: Sweating, chills, headache; c/o increased drowsiness and requesting to see psychiatrist to re-evaluate his medication Objective: 11/20/17 12:00 Last Vital Signs Temp Pulse Resp BP Pulse Ox 97.1 F L 76 18 163/92 11/20/17 09:55 11/20/17 09:55 11/20/17 09:55 11/20/17 09:55 b/p noted, h/o htn (on med) Laboratory Tests 11/18/17 11/18/17 11/18/17 10:53 12:00 12:31 WBC RBC Hgb Hct MCV MCH MCHC RDW Plt Count MPV Sodium Potassium Chloride Carbon Dioxide Anion Gap BUN Creatinine Creat Clearance w eGFR POC Glucometer 206 228 Random Glucose Calcium Total Bilirubin AST ALT Alkaline Phosphatase Total Protein Albumin Urine Color Yellow Urine Appearance Clear Urine pH 5.0 Ur Specific [place] 1.014 Urine Protein Negative Urine Glucose (UA) 2+ H Urine Ketones Negative Urine Blood Negative Urine Nitrite Negative Urine Bilirubin Negative Urine Urobilinogen Negative Ur Leukocyte Esterase Negative RPR Titer 11/18/17 11/18/17 11/19/17 16:18 21:18 06:00 WBC 8.4 RBC 4.86 Hgb 14.1 Hct 43.4 MCV 89.3 MCH 28.9 MCHC 32.4 RDW 13.3 Plt Count 193 MPV 9.5 Sodium Potassium Chloride Carbon Dioxide Anion Gap BUN Creatinine Creat Clearance w eGFR POC Glucometer 176 182 Random Glucose Calcium Total Bilirubin AST ALT Alkaline Phosphatase Total Protein Albumin Urine Color Urine Appearance Urine pH Ur Specific [place] Urine Protein Urine Glucose (UA) Urine Ketones Urine Blood Urine Nitrite Urine Bilirubin Urine Urobilinogen Ur Leukocyte Esterase RPR Titer 11/19/17 11/19/17 11/19/17 06:00 06:00 06:33 WBC RBC Hgb Hct MCV MCH MCHC RDW Plt Count MPV Sodium 137 Potassium 4.3 Chloride 101 Carbon Dioxide 28 Anion Gap 9 BUN 23 H Creatinine 0.8 Creat Clearance w eGFR > 60 POC Glucometer 168 Random Glucose 238 H Calcium 9.7 Total Bilirubin 0.5 AST 44 H ALT 72 H Alkaline Phosphatase 156 H Total Protein 7.5 Albumin 3.6 Urine Color Urine Appearance Urine pH Ur Specific [place] Urine Protein Urine Glucose (UA) Urine Ketones Urine Blood Urine Nitrite Urine Bilirubin Urine Urobilinogen Ur Leukocyte Esterase RPR Titer Nonreactive 11/19/17 11/19/17 11/19/17 11:37 16:18 20:49 WBC RBC Hgb Hct MCV MCH MCHC RDW Plt Count MPV Sodium Potassium Chloride Carbon Dioxide Anion Gap BUN Creatinine Creat Clearance w eGFR POC Glucometer 268 170 166 Random Glucose Calcium Total Bilirubin AST ALT Alkaline Phosphatase Total Protein Albumin Urine Color Urine Appearance Urine pH Ur Specific [place] Urine Protein Urine Glucose (UA) Urine Ketones Urine Blood Urine Nitrite Urine Bilirubin Urine Urobilinogen Ur Leukocyte Esterase RPR Titer 11/20/17 11/20/17 05:26 11:24 WBC RBC Hgb Hct MCV MCH MCHC RDW Plt Count MPV Sodium Potassium Chloride Carbon Dioxide Anion Gap BUN Creatinine Creat Clearance w eGFR POC Glucometer 137 174 Random Glucose Calcium Total Bilirubin AST ALT Alkaline Phosphatase Total Protein Albumin Urine Color Urine Appearance Urine pH Ur Specific [place] Urine Protein Urine Glucose (UA) Urine Ketones Urine Blood Urine Nitrite Urine Bilirubin Urine Urobilinogen Ur Leukocyte Esterase RPR Titer Labs reviewed: bun 23 Assessment: 11/20/17 12:16 Withdrawal sxs C/O increased drowsiness Noted with azotemia Plan: Continue detox Increased drowsiness: psychiatry consult to re-evaluate medication as per patient request Azotemia: encouraged PO water intake
[2017-11-20] MEDS ORDERED: chlordiazePOXIDE 5 MG CAPSULE PO SCH (17:00)
--- NOTE | 2017-11-20 20:31 | PN ---
[facility] Progress Note Note: A&O x#. Denies H/A, CP. Ambulatory. Gait steady. Vital Signs 11/20/17 11/20/17 13:13 17:59 Temperature 96.9 F L 97.1 F L Pulse Rate 76 74 Respiratory 18 18 Rate Blood Pressure 156/86 157/96 Current: 168/97 (L) 155/97 (R) CloNidine 0.1 mg Once Continue to monitor
[2017-11-20] MEDS ORDERED: cloNIDine HCL 0.1 MG TABLET PO ONE (20:32)
[2017-11-20] MEDS: QUEtiapine FUMARATE 50 MG TABLET PO SCH (21:27)
[2017-11-20] MEDS: THIAMINE HCL 100 MG TABLET (FP) PO SCH (21:27)
[2017-11-21] MEDS ORDERED: METHADONE HCL 10 MG TABLET ONE (03:34)
[2017-11-21] MEDS ORDERED: METHADONE HCL 40 MG DISPERSABLE TABLET ONE (03:34)
[2017-11-21] MEDS: METHADONE 120 MG, METHADONE 10 MG PO SCH (06:00)
[2017-11-21] MEDS: metFORMIN HCL 500 MG TABLET (FP) PO SCH ×2 (06:00→17:59)
[2017-11-21] MEDS ORDERED: INSULIN (NOVOLOG) ASPART 100 UNITS/ML 10ML VIAL ONE ×3 (06:02→21:39)
[2017-11-21] MEDS: INSULIN SLIDING SCALE (NOVOLOG) 1 VIAL SQ SCH ×4 (06:03→22:28)
[2017-11-21] MEDS: TOLNAFTATE 1% CREAM 15 GM TUBE TP SCH ×2 (10:11→22:25)
[2017-11-21] MEDS: AMMONIUM LACTATE 12% LOTION 225 GM BOTTLE TP SCH ×2 (10:11→22:26)
[2017-11-21] MEDS: ASPIRIN 81 MG CHEWABLE TABLETS PO SCH (10:12)
[2017-11-21] MEDS: SERTRALINE HCL 50 MG TABLET (FP) PO SCH (10:12)
[2017-11-21] MEDS: NICOTINE 21 MG/24 HOURS TOPICAL PATCH TD SCH (10:12)
[2017-11-21] MEDS: ENALAPRIL MALEATE 10 MG TABLET (FP) PO SCH (10:12)
[2017-11-21] MEDS: PRENATAL VITAMINS W/ FOLIC ACID TABLET (FP) PO SCH (10:12)
--- NOTE | 2017-11-21 10:20 | PN ---
[facility] Progress Note Note: Vital Signs (72 hours) 11/18/17 11/18/17 11/18/17 10:23 13:22 14:56 Temperature 98.5 F 98.2 F 98.4 F Pulse Rate 71 74 72 Respiratory 18 20 18 Rate Blood Pressure 147/98 163/95 109/62 11/18/17 11/18/17 11/19/17 17:41 21:45 00:30 Temperature 97.3 F L 98.1 F Pulse Rate 67 67 Respiratory 18 18 18 Rate Blood Pressure 148/92 141/88 11/19/17 11/19/17 11/19/17 03:30 06:14 10:15 Temperature 96.7 F L 96.9 F L Pulse Rate 63 63 Respiratory 18 18 20 Rate Blood Pressure 147/91 114/70 11/19/17 11/19/17 11/19/17 14:08 18:00 21:22 Temperature 96.8 F L 97.5 F L 97.3 F L Pulse Rate 63 63 73 Respiratory 20 18 18 Rate Blood Pressure 119/72 118/78 145/91 11/20/17 11/20/17 11/20/17 03:30 06:22 09:55 Temperature 97.4 F L 97.1 F L Pulse Rate 62 76 Respiratory 18 18 18 Rate Blood Pressure 158/96 163/92 11/20/17 11/20/17 11/20/17 13:13 17:59 22:00 Temperature 96.9 F L 97.1 F L 97.4 F L Pulse Rate 76 74 72 Respiratory 18 18 18 Rate Blood Pressure 156/86 157/96 155/97 11/21/17 11/21/17 11/21/17 00:30 06:41 09:20 Temperature 97.0 F L 97.7 F Pulse Rate 57 L 79 Respiratory 18 18 18 Rate Blood Pressure 140/86 134/91 Laboratory Last Values WBC 8.4 K/mm3 (4.0-10.0) 11/19/17 06:00 RBC 4.86 M/mm3 (4.00-5.60) 11/19/17 06:00 Hgb 14.1 GM/dL (11.7-16.9) 11/19/17 06:00 Hct 43.4 % (35.4-49) 11/19/17 06:00 MCV 89.3 fl (80-96) 11/19/17 06:00 MCH 28.9 pg (25.7-33.7) 11/19/17 06:00 MCHC 32.4 g/dl (32.0-35.9) 11/19/17 06:00 RDW 13.3 % (11.9-15.9) 11/19/17 06:00 Plt Count 193 K/MM3 (134-434) 11/19/17 06:00 MPV 9.5 fl (7.5-11.1) 11/19/17 06:00 Sodium 137 mmol/L (136-145) 11/19/17 06:00 Potassium 4.3 mmol/L (3.5-5.1) 11/19/17 06:00 Chloride 101 mmol/L (98-107) 11/19/17 06:00 Carbon Dioxide 28 mmol/L (21-32) 11/19/17 06:00 Anion Gap 9 MMOL/L (8-16) 11/19/17 06:00 BUN 23 mg/dL (7-18) H 11/19/17 06:00 Creatinine 0.8 mg/dL (0.55-1.3) 11/19/17 06:00 Creat Clearance w eGFR > 60 (>60) 11/19/17 06:00 POC Glucometer 190 UNITS (80-120) 11/21/17 05:59 Random Glucose 238 mg/dL (74-106) H 11/19/17 06:00 Calcium 9.7 mg/dL (8.5-10.1) 11/19/17 06:00 Total Bilirubin 0.5 mg/dL (0.2-1) 11/19/17 06:00 AST 44 U/L (15-37) H 11/19/17 06:00 ALT 72 U/L (13-61) H 11/19/17 06:00 Alkaline Phosphatase 156 U/L (45-117) H 11/19/17 06:00 Total Protein 7.5 g/dl (6.4-8.2) 11/19/17 06:00 Albumin 3.6 g/dl (3.4-5.0) 11/19/17 06:00 Urine Color Yellow 11/18/17 12:00 Urine Appearance Clear 11/18/17 12:00 Urine pH 5.0 (5.0-8.0) 11/18/17 12:00 Ur Specific [place] 1.014 (1.001-1.035) 11/18/17 12:00 Urine Protein Negative (NEGATIVE) 11/18/17 12:00 Urine Glucose (UA) 2+ (NEGATIVE) H 11/18/17 12:00 Urine Ketones Negative (NEGATIVE) 11/18/17 12:00 Urine Blood Negative (NEGATIVE) 11/18/17 12:00 Urine Nitrite Negative (NEGATIVE) 11/18/17 12:00 Urine Bilirubin Negative (<2.0 mg/dL) 11/18/17 12:00 Urine Urobilinogen Negative mg/dL (0.2-1.0) 11/18/17 12:00 Ur Leukocyte Esterase Negative (NEGATIVE) 11/18/17 12:00 RPR Titer Nonreactive (NONREACTIVE) 11/19/17 06:00 c/o of back aches, constipation x 3 days no improvement with citroma AOx3 no distress no adventitious breath sounds ABD non-tender, non-distended full ROM ambulating in the unit independently withdrawal sx constipation back pain Lactulose PO BID felxeril PRN increase Fluids Continue to monitor
--- NOTE | 2017-11-21 11:25 | PN ---
Psychiatric Progress Note Vital Signs: Vital Signs Period Temp Pulse Resp BP Sys/Mcgill Pulse Ox Last 24 Hr 96.9 F-97.7 F 57-79 18-18 134-157/86-97 Date of Session: 11/21/17 Chief Complaint:: " I feel drowsy.I don't want seroquel anymore." HPI: Psychiatric re-consult is sought to address patient's complaint of drowsiness.Hospital course is otherwise unremarkable. ROS: Patient is ambulatory.Steady gait.Cognition remains intact. Current Medications: Active Medications Generic Name Dose Route Start Last Admin Trade Name Freq PRN Reason Stop Dose Admin Acetaminophen 650 mg 11/18/17 10:44 Tylenol - PO Q4H PRN FEVER Al Hydroxide/Mg Hydroxide 30 ml 11/18/17 10:44 Mylanta Oral Suspension - PO Q6H PRN DYSPEPSIA Aspirin 81 mg 11/19/17 10:00 11/21/17 10:12 Asa - PO 81 mg DAILY EMMA Administration Enalapril Maleate 10 mg 11/21/17 22:00 Vasotec - PO BID EMMA Eucalyptus/Menthol/Phenol/Sorbitol 1 each 11/18/17 10:44 Cepastat Lozenge - MM Q4H PRN SORE THROAT Guaifenesin 10 ml 11/18/17 10:44 Robitussin Dm - PO Q6H PRN COUGH Hydroxyzine Pamoate 50 mg 11/18/17 10:44 Vistaril - PO Q4H PRN AGITATION Ibuprofen 400 mg 11/18/17 10:44 Motrin - PO Q6H PRN PAIN LEVEL 4-6 Insulin Aspart 1 vial 11/18/17 11:00 11/21/17 06:03 Novolog Vial Sliding Scale - SQ 2 units ACHS EMMA Administration Protocol Lactic Acid 1 applic 11/18/17 22:00 11/21/17 10:11 Lac-Hydrin 12 TP 1 applic BID EMMA Administration Lactulose 20 gm 11/21/17 14:00 Cephulac (Oral Use) PO BID EMMA Loperamide HCl 4 mg 11/18/17 10:44 Imodium - PO Q6H PRN DIARRHEA Magnesium Citrate 300 ml 11/18/17 10:44 11/20/17 15:27 Citroma - PO 300 ml Q48H PRN Administration CONSTIPATION Magnesium Hydroxide 30 ml 11/18/17 10:44 Milk Of Magnesia - PO DAILY PRN CONSTIPATION Melatonin 5 mg 11/18/17 22:00 Melatonin PO HS PRN INSOMNIA Metformin HCl 500 mg 11/18/17 16:30 11/21/17 06:00 Glucophage - PO 500 mg BID@0700,1630 EMMA Administration Methadone HCl 120 mg/ 130 mg 11/19/17 06:00 11/21/17 06:00 Methadone HCl 10 mg PO 11/25/17 05:59 130 mg DAILY@0600 EMMA Administration Nicotine 21 mg 11/18/17 11:00 11/21/17 10:12 Nicoderm Patch - TD 21 mg DAILY EMMA Administration Multivit/Folic Acid/Iron 1 tab 11/19/17 10:00 11/21/17 10:12 Vitamins (Sjr) - PO 1 tab DAILY EMMA Administration Pseudoephedrine/Triprolidine 1 combo 11/18/17 10:44 Actifed - PO TID PRN NASAL CONGESTION Quetiapine Fumarate 50 mg 11/18/17 22:00 11/20/17 21:27 Seroquel - PO 50 mg HS EMMA Administration Sertraline HCl 100 mg 11/19/17 10:00 11/21/17 10:12 Zoloft - PO 100 mg DAILY EMMA Administration Thiamine HCl 100 mg 11/18/17 22:00 11/20/17 21:27 Vitamin B1 - PO 100 mg HS EMMA Administration Tolnaftate 1 applic 11/18/17 22:00 11/21/17 10:11 Tinactin 1% Cream - TP 1 applic BID EMMA Administration Medication(s) Change(s): Seroquel is discontinued and sertraline reduced to 50 mg po daily.Patient is in agreement with this plan of care. Current Side Effect: Yes (mild sedation) Lab tests ordered: No Lab tests reviewed: Yes Provider note:: Chart reviewed.Met with the patient.Mr Uribe is now complaining of feeling tired and drowsy. Circulation Tender observes a temporal correlation between the morning doses of medications and complaint of sedation (mild). Unlikely to come from a rather minimal dose of seroquel dispensed at bedtime.Patient has been noted as " fine " during daytime : alert,active, ambulatory,sociable and energetic.Vitals remains stable.No occurrence of orthostasis.As a precaution, seroquel is discontinued and sertraline dose decreased by half.Patient agreed. Will follow. Total face to face time:: 25 Mental Status Exam - Mental Status Exam Alert and Oriented to: Time, Place, Person Cognitive Function: Good Patient Appearance: Well Groomed Mood: Hopeful, Euthymic Affect: Appropriate, Normal Range Patient Behavior: Cooperative Speech Pattern: Clear Voice Loudness: Normal Thought Process: Goal Oriented Hallucinations: Denies Suicidal Ideation: Denies Homicidal Ideation: Denies Insight/Judgement: Fair Sleep: Well Appetite: Good Muscle strength/Tone: Normal Gait/Station: Normal Psychiatric Treatment Plan - Problem List (1) Opioid dependence on agonist therapy Current Visit: Yes Comment: . (2) Alcohol dependence with uncomplicated withdrawal Current Visit: Yes Comment: . (3) Cocaine dependence, uncomplicated Current Visit: Yes Comment: . (4) Nicotine dependence Current Visit: Yes Comment: . (5) Substance induced mood disorder Current Visit: Yes Comment: . (6) Insomnia Current Visit: Yes Comment: .Resolved. (7) Drowsiness Current Visit: No Comment: .As per self-report. NOT observed clinically at time of this examination.
[2017-11-21] MEDS: LACTULOSE 20 GM/30 ML UDC (FOR ORAL USE ONLY) PO SCH ×2 (13:16→22:26)
[2017-11-21] MEDS ORDERED: chlordiazePOXIDE HCL 10 MG CAPSULE PO SCH (17:00)
[2017-11-21] MEDS ORDERED: ENALAPRIL MALEATE 10 MG TABLET (FP) PO SCH (22:00)
[2017-11-21] MEDS: THIAMINE HCL 100 MG TABLET (FP) PO SCH (22:26)
[2017-11-22] MEDS ORDERED: METHADONE HCL 10 MG TABLET ONE (03:33)
[2017-11-22] MEDS ORDERED: METHADONE HCL 40 MG DISPERSABLE TABLET ONE (03:33)
[2017-11-22] MEDS: METHADONE 120 MG, METHADONE 10 MG PO SCH (05:46)
[2017-11-22] MEDS: INSULIN SLIDING SCALE (NOVOLOG) 1 VIAL SQ SCH ×2 (06:08→11:51)
[2017-11-22] MEDS: metFORMIN HCL 500 MG TABLET (FP) PO SCH (06:08)
[2017-11-22 09:36] VITALS: BP 142/89; PULSE 75; TEMP 97.4
[2017-11-22] MEDS ORDERED: SERTRALINE HCL 50 MG TABLET (FP) PO SCH (10:00)
[2017-11-22] MEDS ORDERED: ENALAPRIL MALEATE 10 MG TABLET (FP) PO SCH (10:00)
[2017-11-22] MEDS: ASPIRIN 81 MG CHEWABLE TABLETS PO SCH (10:19)
[2017-11-22] MEDS: PRENATAL VITAMINS W/ FOLIC ACID TABLET (FP) PO SCH (10:19)
[2017-11-22] MEDS: AMMONIUM LACTATE 12% LOTION 225 GM BOTTLE TP SCH (10:20)
[2017-11-22] MEDS: TOLNAFTATE 1% CREAM 15 GM TUBE TP SCH (10:20)
[2017-11-22] MEDS: LACTULOSE 20 GM/30 ML UDC (FOR ORAL USE ONLY) PO SCH (10:21)
[2017-11-22] MEDS: NICOTINE 21 MG/24 HOURS TOPICAL PATCH TD SCH (10:21)
[2017-11-22] MEDS ORDERED: INSULIN (NOVOLOG) ASPART 100 UNITS/ML 10ML VIAL ONE (11:52)
--- NOTE | 2017-11-22 14:30 | DS ---
[facility] Detox Discharge Summary Admission Date: 11/18/17 Discharge Date: 11/22/17 - History Pertinent Past History: HTN, DM, Hep C - Physical Exam Results Vital Signs: Vital Signs Temperature 97.4 F L 11/22/17 09:35 Pulse Rate 75 11/22/17 09:35 Respiratory Rate 18 11/22/17 09:35 Blood Pressure 142/89 11/22/17 09:35 O2 Sat by Pulse Oximetry (%) Pertinent Admission Physical Exam Findings: Withdrawal sx WBC 8.4 K/mm3 (4.0-10.0) 11/19/17 06:00 RBC 4.86 M/mm3 (4.00-5.60) 11/19/17 06:00 Hgb 14.1 GM/dL (11.7-16.9) 11/19/17 06:00 Hct 43.4 % (35.4-49) 11/19/17 06:00 MCV 89.3 fl (80-96) 11/19/17 06:00 MCH 28.9 pg (25.7-33.7) 11/19/17 06:00 MCHC 32.4 g/dl (32.0-35.9) 11/19/17 06:00 RDW 13.3 % (11.9-15.9) 11/19/17 06:00 Plt Count 193 K/MM3 (134-434) 11/19/17 06:00 MPV 9.5 fl (7.5-11.1) 11/19/17 06:00 Sodium 137 mmol/L (136-145) 11/19/17 06:00 Potassium 4.3 mmol/L (3.5-5.1) 11/19/17 06:00 Chloride 101 mmol/L (98-107) 11/19/17 06:00 Carbon Dioxide 28 mmol/L (21-32) 11/19/17 06:00 Anion Gap 9 MMOL/L (8-16) 11/19/17 06:00 BUN 23 mg/dL (7-18) H 11/19/17 06:00 Creatinine 0.8 mg/dL (0.55-1.3) 11/19/17 06:00 Creat Clearance w eGFR > 60 (>60) 11/19/17 06:00 POC Glucometer 133 UNITS (80-120) 11/22/17 05:46 Random Glucose 238 mg/dL (74-106) H 11/19/17 06:00 Calcium 9.7 mg/dL (8.5-10.1) 11/19/17 06:00 Total Bilirubin 0.5 mg/dL (0.2-1) 11/19/17 06:00 AST 44 U/L (15-37) H 11/19/17 06:00 ALT 72 U/L (13-61) H 11/19/17 06:00 Alkaline Phosphatase 156 U/L (45-117) H 11/19/17 06:00 Total Protein 7.5 g/dl (6.4-8.2) 11/19/17 06:00 Albumin 3.6 g/dl (3.4-5.0) 11/19/17 06:00 Urine Color Yellow 11/18/17 12:00 Urine Appearance Clear 11/18/17 12:00 Urine pH 5.0 (5.0-8.0) 11/18/17 12:00 Ur Specific [place] 1.014 (1.001-1.035) 11/18/17 12:00 Urine Protein Negative (NEGATIVE) 11/18/17 12:00 Urine Glucose (UA) 2+ (NEGATIVE) H 11/18/17 12:00 Urine Ketones Negative (NEGATIVE) 11/18/17 12:00 Urine Blood Negative (NEGATIVE) 11/18/17 12:00 Urine Nitrite Negative (NEGATIVE) 11/18/17 12:00 Urine Bilirubin Negative (<2.0 mg/dL) 11/18/17 12:00 Urine Urobilinogen Negative mg/dL (0.2-1.0) 11/18/17 12:00 Ur Leukocyte Esterase Negative (NEGATIVE) 11/18/17 12:00 RPR Titer Nonreactive (NONREACTIVE) 11/19/17 06:00 Labs noted - Treatment Hospital Course: Detox Protocol Followed, Detoxed Safely, Discharged Condition Good, Rehab Referral Accepted - Medication Discharge Medications: Ambulatory Orders Sertraline HCl [Zoloft -] 100 mg PO DAILY #30 tablet 03/22/15 Enalapril Maleate [Vasotec -] 10 mg PO DAILY #30 tablet 05/11/17 Quetiapine Fumarate [Seroquel -] 50 mg PO HS #30 tablet 05/11/17 Aspirin [ASA -] 81 mg PO DAILY #30 tab.chew 05/12/17 Gabapentin [Neurontin -] 300 mg PO BID #60 capsule 05/12/17 metFORMIN HCL [Glucophage -] 500 mg PO BID@0700,1630 #60 tablet 05/12/17 Insulin (Novolog) [Novolog -] 0 units SQ TID PRN 11/18/17 - Diagnosis (1) Alcohol dependence with uncomplicated withdrawal Status: Acute (2) Cocaine dependence, uncomplicated Status: Acute (3) Insomnia Status: Acute (4) Nicotine dependence Status: Acute (5) Substance induced mood disorder Status: Acute (6) Essential hypertension Status: Chronic (7) Hepatitis C Status: Chronic Qualifiers: Viral hepatitis chronicity: chronic Hepatic coma status: without hepatic coma Qualified Code(s): B18.2 - Chronic viral hepatitis C (8) DM Diabetes mellitus type 2 Status: Chronic - AMA Did Patient Leave Against Medical Advice: No
== END 2017-11-22 13:15 | disposition home or self-care (01) | DRG 773 ==
LOC: YASAS 10:08 → Y3N 10:41
PROC: HZ2ZZZZ Detoxification Services for Substance Abuse Treatment (ICD-10-PCS; principal; 2017-11-21)
DX: F10.230 Alcohol dependence with withdrawal, uncomplicated (principal); F14.10 Cocaine abuse, uncomplicated; F17.213 Nicotine dependence, cigarettes, with withdrawal; F11.20 Opioid dependence, uncomplicated; F19.24 Other psychoactive substance dependence with psychoactive substance-induced mood disorder; F90.9 Attention-deficit hyperactivity disorder, unspecified type; F31.9 Bipolar disorder, unspecified; G47.00 Insomnia, unspecified; G62.9 Polyneuropathy, unspecified; I10 Essential (primary) hypertension; E11.65 Type 2 diabetes mellitus with hyperglycemia; Z79.4 Long term (current) use of insulin; K59.00 Constipation, unspecified; B18.2 Chronic viral hepatitis C; R40.0 Somnolence; M54.5 Low back pain; G89.29 Other chronic pain; B35.3 Tinea pedis; Z86.69 Personal history of other diseases of the nervous system and sense organs
CPT/HCPCS: 36415; 80053; 81003; 82962; 85027; 86593; 90688; 93005; 93010; G0008; J0735